=== PATIENT | male | born 1930 | race Caucasian/White ===

== ENCOUNTER → 2016-08-11 | Outpatient (CLI) | payer OTHER, MEDICARE ==
[~2016-08-11] MED LIST: ADULT LOW DOSE81 MG PO; ADVAIR 250-501 EACH INH; ADVAIR HFA 230M12 GM INH; ALBUTEROL; ALBUTEROL NEB; ALBUTEROL2.5 MG/0.1; ALBUTEROL2.5 MG/31 INH; ALLERGY RELIEF10 M3 PO; ALTACE; ALTACE 1.25 M1.25 M1 PO; ALTACE5 M1 PO; ASPIR 8181 MG PO; ASTELIN30 ML NS; AZITHROMYCIN 2250 MG PO; BALSALAZIDE DI750 M1 PO; BELLADONNA-OPI1 EACH RC; BENTYL 10 MG CA10 MG PO; BUDESONIDE EC3 MG PO; CALCIUM; CARVEDILOL3.125 MG PO; CENTRUM SILVER1 EAC2 PO; COLACE100 MG PO; COLAZAL750 M1; COLAZAL750 M1 PO; COZAAR 50 MG TA50 M2 PO; DOXYCYCLINE 10100 MG PO; DUONEB 2.5-0.5 M3 ML INH; FISH OIL + D31 EACH PO; FISH OIL 1,0001 EAC5 PO; FISH OIL 1,001000 M2 PO; FLOMAX0.4 MG PO; FLONASE 0.05%50 MCG NASAL; FOLIC ACID 40400 MC1; FOLIC ACID1 MG PO; FUROSEMIDE 40 M40 M1 PO; HYDROCODON-ACE1 EAC7 PO; HYDROCODON-ACE1 EAC8 PO; IPRATROPIUM; KEFLEX500 MG PO; KLOR-CON M2020 MEQ PO; KLOR-CON20 ME1 PO; LEVAQUIN 500 M500 M4 PO; LEVAQUIN 500 M500 MG PO; LOSARTAN POTASS25 MG PO; MEDROLDOSEPACK PO; MIRALAX17 GM PO; MUCINEX TA600 MG/TA2 PO; NITROGLYCERIN0.4 MG; NORCO 5-325 TA1 EACH; NORCO 5-325 TA1 EACH PO; OMEPRAZOLE PO; OS-CAL 500+D C1 EACH; OXYGEN MISCELL; PERCOCET; PERCOCET 5-3251 EACH PO; POTASSIUM20 PO; PREDNISONE 10 M10 M1 PO; PREDNISONE 10 M10 MG PO; PREDNISONE 20 M20 M1 PO; PREDNISONE 20 M20 MG PO; PREDNISONE 5 MG5 MG PO; PROAIR HFA8.5 GM INH; PROMETHAZINE HC25 M1 PO; PULMICORT0.5 MG/2 M IH; RESTORIL15 MG PO; SENOKOT-S1 TA1 PO; SIMBRINZA 1%-0.28 ML OPHTHALMIC; SIMVASTATIN40 MG PO; SPIRIVA INH; SPIRIVA18 MCG INH; SPIRONOLACTONE25 MG PO; TAMIFLU30 MG PO; TRAMADOL 50 MG50 MG PO; TRAVATAN Z5 ML OP; XANAX 0.5 MG0.5 M1 PO; XARELTO10 M1 PO; ZYRTEC10 M5 PO
== END ==
LOC: ULTRA 10:53
DX: R60.0 Localized edema (principal)

== ENCOUNTER → 2016-09-26 | Outpatient (CLI) | payer OTHER, MEDICARE ==
[~2016-09-26] MED LIST changes: +PREDNISONE 1 MG1 M1 PO; +PROSCAR 5MG TABL5 M1 PO; +SIMBRINZA 1%-0.28 ML; +UNKNOWN ANTIBIOTIC
== END ==
LOC: CAT 08:48
DX: R19.07 Generalized intra-abdominal and pelvic swelling, mass and lump (principal); K57.90 Diverticulosis of intestine, part unspecified, without perforation or abscess without bleeding

== ENCOUNTER 2016-09-27 06:52 | Inpatient (IN) | payer OTHER, MEDICARE ==
[~2016-09-27] VITALS: Ht 177.8 cm; Wt 73.4 kg
[2016-09-27] VITALS (26 sets, daily range): BP systolic 99–198; BP diastolic 52–143
--- NOTE | ~2016-09-27 | HC ---
[facility] [place] [address] CONSULTATION Name: ABIGAIL LOUISE Room #: 245-P ADM IN M.R.#: [id number] Admission: 09/27/16 Attend Phys: Lokesh Mcintosh DO Discharge: Date of : 32 Report #: [id number] THIS REPORT FOR: //name// CC: Snow Coronado DATE OF SERVICE: 09/28/2016 NEPHROLOGY CONSULTATION REASON FOR CONSULTATION: Decreased urine output. HISTORY OF PRESENT ILLNESS: This 85-year-old gentleman with known COPD, chronic atrial fibrillation and Crohn's disease was admitted with apparent pneumonia and shortness of breath. He does not have chronic renal disease, baseline creatinine of 1, but apparently, he has cor pulmonale with right-sided failure, chronically on Lasix and spironolactone at home. These medications were stopped. He was admitted and treated for his pneumonia and steroids were added. He was not given diuretics. His urine output has become somewhat sluggish. PAST MEDICAL HISTORY: He has the chronic atrial fibrillation and Crohn's disease. He had a bowel resection within the last year, history of hypertension and right-sided heart failure. He has got obstructive sleep apnea, but he does not use CPAP. He has had a right knee replacement and right shoulder replacement. He has previous atrial septal defect repair and has had several back surgeries. SOCIAL HISTORY: Former smoker, not much alcohol. Lives at home with his . HOME MEDICATIONS: Include furosemide 40 mg daily, Losartan 50 mg daily, balsalazide 750 mg b.i.d., finasteride 5 mg daily, fish oil, spironolactone 25 mg daily, albuterol inhaler and again currently now has the addition of the steroids. REVIEW OF SYSTEMS: GENERAL: He has gotten a bit more confused. EYES: Vision seems okay. ENT: Hearing okay. Swallowing has not been a problem. ENDOCRINE: No diabetes or thyroid disease. RESPIRATORY: Chronic shortness of breath with COPD and now acute exacerbation, not much in the way of cough or hemoptysis. CARDIAC: He has had the chronic atrial fibrillation. GASTROINTESTINAL: Denies nausea, vomiting or diarrhea. GENITOURINARY: He has got Lord catheter in, has had some degree of prostate enlargement. NEUROLOGIC: Cognitively, he seems a bit off at this time. [facility] [address] [place] [address] CONSULTATION Name: ABIGAIL LOUISE Room #: 245-P [facility] IN M.R.#: [id number] Admission: 09/27/16 Attend Phys: Lokesh Mcintosh DO Discharge: Date of : 32 Report #: [id number] PHYSICAL EXAMINATION: GENERAL: Chronically ill-appearing gentleman. SKIN: Unremarkable. SKELETAL: Nonobese, well developed and well nourished. HEENT: Extraocular movements full. Vision intact. Hearing intact. Mucous membranes on the dry side. NECK: Neck veins are somewhat distended. CHEST: Shows some rhonchi, particularly at the bases. HEART: Irregularly irregular. ABDOMEN: Soft. EXTREMITIES: Show no edema. Peripheral pulses diminished. LABORATORY DATA: Creatinine was 1; it is up to 1.4. Electrolytes are okay. Urinalysis was a bit concentrated. No proteinuria. ASSESSMENT AND PLAN: 1. Elevated creatinine with decreased urine output. He may have some volume depletion with some right-sided failure. He has got apparent acute pneumonia and exacerbation of chronic obstructive pulmonary disease. He has been diuretic dependent, so urine output is dropped off the diuretics unexpectedly. No real acute intervention is indicated, except for the treatment now of his pneumonia and we will follow him along. 2. Apparent pneumonia. 3. Chronic obstructive pulmonary disease with exacerbation. 4. History of sleep apnea. 5. History of Crohn's disease with recent resection of the bowel. 6. Chronic atrial fibrillation. 7. Repair of atrial septal defect. <ELECTRONICALLY SIGNED> By: Burton Boateng MD 09/30/16 0718 1812 0047 Paul Vasquez MD /nt
--- NOTE | ~2016-09-27 | EKG ---
[address] [address] ELECTROCARDIOGRAM REPORT Name: ABIGAIL LOUISE Room #: 245-P ADM IN M.R.#: [id number] Admission: 09/27/16 Attend Phys: [place] Coronado MD Discharge: Date of : 32 Report #: [id number] THIS REPORT FOR: //name// [facility] ED Test Date: 2016-09-27 Test Time: 06:58:34 Pat Name: ABIGAIL LOUISE Department: Room: [facility] Gender: M Extermination Supervisor: [facility] [place] 1930 Requested By: Faraz Ley Order Number: [id number] MD: Chicho Palafox Measurements Intervals [place] Rate: 129 P: 116 [place]: 110 QRS: 57 QRSD: 124 T: -24 QT: 303 QTc: 444 Interpretive Statements Sinus tachycardia IVCD, consider atypical RBBB Compared to ECG 06/02/2016 13:49:42 Atrial flutter no longer present ST (T wave) deviation no longer present Electronically Signed On 09-28-2016 22:06:01 CDT by Chicho Palafox [email or web address] <ELECTRONICALLY SIGNED> By: Chicho Palafox MD 09/28/16 2206 0658 0658 Chicho Palafox MD /EPI
--- NOTE | ~2016-09-27 | HC ---
[facility] [place] [address] CONSULTATION Name: ABIGAIL LOUISE Room #: 245-P ADM IN M.R.#: [id number] Admission: 09/27/16 Attend Phys: [place] Coronado MD Discharge: Date of : 32 Report #: [id number] THIS REPORT FOR: //name// CC: Snow Bemonse Coronado DATE OF SERVICE: 09/28/2016 ATTENDING PHYSICIAN: Bryan Coronado M.D. REASON FOR CONSULTATION: Antibiotic management. HISTORY OF PRESENT ILLNESS: The patient is an 85-year-old white man admitted with increasing difficulty in breathing and admitted to the intensive care unit. The patient is COPD and found to have right infiltrate, started on Zosyn and ID opinion is requested. At present, the patient on BiPAP and uncomfortable on account of that. PAST MEDICAL HISTORY: 1. Chronic obstructive pulmonary disease, coronary artery disease status post coronary artery bypass grafting. 2. History of coronary artery stenting. 3. Crohn's disease 4. Back surgery. 5. Previous knee surgery. DRUG ALLERGIES: MORPHINE, FACULTY ADMINISTRATOR side effects; MESALAMINE, rash; MERCAPTOPURINE, rash; CARVEDILOL, cough; LEVOFLOXACIN, itching; INFLIXIMAB (REMICADE) rash, pneumonia. MEDICATIONS: The patient is currently on treatment with melatonin p.r.n., Benadryl p.r.n., famotidine b.i.d. 10 mg, enoxaparin 30 mg at bedtime, diltiazem 30 mg p.o. q.i.d., Zosyn 3.375 grams IV every 6 hours, Atrovent, albuterol inhalation treatments every 4 hours, ondansetron 4 mg IV p.r.n. q. 4 hours, intravenous fluids. The patient has received a single dose of methylprednisolone 125 mg IV yesterday. SOCIAL HISTORY: See H and P old records. FAMILY HISTORY: See H and P old records. REVIEW OF SYSTEMS: Shortness of breath and cough. No expectoration. PHYSICAL EXAMINATION: GENERAL: Elderly man on BiPAP in the ICU, not toxic looking, uncomfortable with his BiPAP. [facility] [address] [place] [address] CONSULTATION Name: ABIGAIL LOUISE Room #: 245-P [facility] IN M.R.#: [id number] Admission: 09/27/16 Attend Phys: [place] Coronado MD Discharge: Date of : 32 Report #: [id number] VITAL SIGNS: Temperature 98.4, pulse 68, respirations 22, BP 125/84, patient on BiPAP, FiO2 of 30% and saturations at 98%. HEENMT: Pupils reactive. Mouth unable to examine because of BiPAP. NECK: Supple, no thyromegaly. LUNGS: Crackles, right base and decreased breath sounds throughout. HEART: S1, S2. No gallop or murmur. ABDOMEN: Soft, mildly tender right lower quadrant and no palpable masses or megaly. GENITALIA: Lord catheter in place. RECTAL: Deferred. EXTREMITIES: No clubbing, cyanosis. NEUROLOGIC: Grossly within normal limits. LABORATORY DATA: Sodium 132, potassium 4.5, BUN 16, creatinine 1, glucose 187, troponin 0.10, NT-proBNP 2784, protime 9.4, INR 1. WBC 13,100, hemoglobin 12.3 g/dL and platelets 257,000. White blood cell count differential revealed 84% segmented neutrophils. Urinalysis revealed trace protein, 1+ glucose, 2+ blood. Microscopic exam revealed a microscopic hematuria. ABGs reveal pH 7.34, pCO2 of 52, pO2 80, bicarbonate 28, lactate normal. These set of gases on BiPAP, FiO2 of 40%. MICROBIOLOGY DATA: Blood cultures were ordered and obtained and they are negative so far. Radiology evaluation, a chest x-ray revealed hyperinflation of the lungs As status post coronary artery bypass grafting and right basilar perihilar infiltrate, possible pneumonia. CT scan of abdomen and pelvis revealed no acute intraabdominal process, diverticulosis. ASSESSMENT: 1. Possible right lower lobe pneumonia. 2. Acute exacerbation of chronic obstructive pulmonary disease. 3. Emphysema. 4. Respiratory failure with CO2 retention. 5. Metabolic acidosis. 6. Coronary artery disease status post coronary artery bypass grafting. 7. Atrial fibrillation, rate control. 8. History of Crohn's disease. SUGGESTIONS: The patient not toxic looking, afebrile. We will continue coverage with Zosyn. I wonder if steroids may need to be continued. Dr. Coronado, thank you for requesting my suggestions in the care of your patient. <ELECTRONICALLY SIGNED> By: Benjamin Palafox MD 09/29/16 1303 0658 30 Benjamin Palafox MD /nt
--- NOTE | ~2016-09-27 | HC ---
[facility] [place] [address] CONSULTATION Name: ABIGAIL LOUISE Room #: 245-P ADM IN M.R.#: [id number] Admission: 09/27/16 Attend Phys: Lokesh Mcintosh DO Discharge: Date of : 32 Report #: [id number] THIS REPORT FOR: //name// CC: Snow Corondao DATE OF SERVICE: 09/27/2016 HISTORY OF PRESENT ILLNESS: The patient is an 85-year-old white male who I was asked to see in the hospital today because of atrial fibrillation. The patient apparently had open heart surgery in 1974 in [place], [place], when they apparently repaired a hole in his heart. He then presented in 2009 here to [facility] with shortness of breath. Cardiac catheterization showed an 80% stenosis of circumflex artery. Ejection fraction of 40%. He has a single bare-metal stent placed with Dr. Flores. He has a history of atrial fibrillation, apparently is never cardioverted. He is not felt to be a candidate for anticoagulation because of his inflammatory bowel disease. He has been followed by my partner, Dr. Benitez. Last nuclear stress test was in 2015 that showed no ischemia, ejection fraction 52%. His last echocardiogram in April of this year showed ejection fraction 55%, right atrial enlargement, aortic sclerosis, mild mitral and moderate tricuspid insufficiency with moderate pulmonary hypertension. He apparently did not have a bubble study. The patient was actually just admitted here to [facility] last month. The patient has a history of COPD. He was discharged in May. However, recently had increasing shortness of breath and he was admitted. He is found to be in atrial fibrillation and I was asked to see him for further evaluation and treatment. He has had a cough, but no fever or increasing edema. Denies any chest pain, palpitations or syncope. PAST MEDICAL HISTORY: Significant for hernia repair, back surgery, rotator cuff surgery, knee surgery. He has had previous bowel resection for Crohn's disease. MEDICATIONS: Consist of Spiriva, albuterol, ProAir, spironolactone, losartan, Lasix. ALLERGIES: He has intolerance to LEVAQUIN. FAMILY HISTORY: His brother had hypertension. SOCIAL HISTORY: He is . He and his live in [place], [place]. He is retired from [employer]. He does not smoke for 40 years. Rarely drinks alcohol. REVIEW OF SYSTEMS: He was told in the past by an eye doctor, he has had a previous stroke. He has no history of liver disease, peptic ulcer disease. He has had a skin cancer removed in the past. No psychiatric illness. No kidney [facility] [address] [place] [address] CONSULTATION Name: ABIGAIL LOUISE Room #: 245-P ADM IN M.R.#: [id number] Admission: 09/27/16 Attend Phys: Lokesh Mcintosh DO Discharge: Date of : 32 Report #: [id number] disease. PHYSICAL EXAMINATION: GENERAL: Revealed an elderly male, lying in bed, appeared in mild respiratory distress. VITAL SIGNS: He had a blood pressure of 180/80, pulse of 100 . He is afebrile. HEENT: He is anicteric. Mucous membranes moist. NECK: Veins appear mildly distended. CHEST: Revealed distant breath sounds. CARDIAC: Irregular rhythm. No significant murmur. ABDOMEN: Soft. EXTREMITIES: There is 1+ edema in the left lower extremity. Dorsalis pedis pulse 2+ in the right, cannot be palpated in the left. SKIN: Warm and dry. His ECG showed atrial fibrillation with an increased ventricular response rate, septal Q-waves. His x-rays, he had a chest x-ray done this morning that showed hyperinflated lung watts and right perihilar infiltrate. Carotid Doppler study in May this year showed right ECA stenosis, plaque in the other carotids. His lab work included sodium 132, potassium 4.5, BUN 16, creatinine 1.0. His troponin 0.10. BNP 2784. White blood cell count 13.1, hemoglobin 12.3. IMPRESSION AND RECOMMENDATIONS: 1. Shortness of breath, suspect secondary to chronic obstructive pulmonary disease. 2. Coronary artery disease. Previous stent. I would recommend an aspirin a day. 3. Atrial fibrillation. Rate controlled. The patient not felt to be a candidate for anticoagulation because of his history of inflammatory bowel disease. 4. Crohn's disease. Previous resection. 5. History of hypertension. 6. Previous open repair of an atrial septal defect. <ELECTRONICALLY SIGNED> By: Jose G Ferreira MD, [facility] 09/30/16 0755 1418 03 Jose G Ferreira MD, FAC /nt
--- NOTE | ~2016-09-27 | HC ---
[facility] [place] [address] CONSULTATION Name: ABIGAIL LOUISE Room #: 245-P ADM IN M.R.#: [id number] Admission: 09/27/16 Attend Phys: Bryan Coronado MD Discharge: Date of : 32 Report #: [id number] THIS REPORT FOR: //name// CC: Snow Coronado DATE OF SERVICE: 09/27/2016 REASON FOR CONSULTATION: Exacerbation of COPD. IMPRESSION: 1. Hypercapnic hypoxic respiratory failure. 2. Leukocytosis. 3. Pneumonia, question aspiration. 4. Elevated BNP. 5. Hyponatremia. 6. Hypothyroidism. PLAN: Treat his pneumonia and exacerbation of COPD. Continue BiPAP, Cardiology and ID to see also, DVT and ulcer prophylaxis. ICU protocol HISTORY OF PRESENT ILLNESS: Very pleasant 85-year-old male comes in through emergency room, complained of shortness breath. No definite chest pain or palpitations. Positive cough, low-grade fever, now on BiPAP in the emergency room. HOME MEDICATIONS: Included Advair, ProAir, multivitamin, Travatan, Simbrinza, fish oil, Flonase, losartan, spironolactone, Aldactone, Spiriva, finasteride, Lasix, levothyroxine, Sulfazine. PAST MEDICAL HISTORY: Coronary artery disease 2009, had a post bare-metal stent left circumflex, history of cardiomyopathy and pulmonary hypertension, atrial fibrillation, Crohn's disease, mild CHF, hypertension, arthritis. Recently, he had a CT abdomen, I noticed for back pain. PAST SURGICAL HISTORY: Surgeries in the past include hernia repair in 3, heart surgery in 1974, back surgery in 1980 and 1987, left rotator cuff repair, appendectomy, vasectomy, bilateral cataract surgery, right reversal total shoulder arthroplasty, open biceps tendon, right knee surgery. FAMILY HISTORY: Positive for hypertension. SOCIAL HISTORY: Quit smoking in 1984. Social ETOH per chart. ALLERGIES: ASACOL, REMICADE, MERCAPTOPURINE, PERFOROMIST, and LEVAQUIN. [facility] [address] [place] [address] CONSULTATION Name: ABIGAIL LOUISE Room #: 245-P ADM IN M.R.#: [id number] Admission: 09/27/16 Attend Phys: Bryan Coronado MD Discharge: Date of : 32 Report #: [id number] REVIEW OF SYSTEMS: Difficulty hearing, cough, shortness of breath, phlegm. No definite chest pain. Positive back pain, headaches, arthritis. Spirometry in office was FVC was 2.79, 79% predicted, FEV1 of 0.98. PHYSICAL EXAMINATION: VITAL SIGNS: Temperature 98.1, pulse 113, respirations 26, BP 127/69. EYES: Negative icterus. NECK: Trachea midline. BiPAP on. LUNGS: Coarse, right greater than left, crackles. HEART: Tachycardic. ABDOMEN: Bowel sounds present. EXTREMITIES: Showed positive edema, left greater than right; moves all extremities. LABORATORY DATA: White count 13.1, hemoglobin 12.3, platelets 257. Troponin less than 0.04. BNP 2784. INR 1. Chest x-ray showed right infiltrate. CT abdomen yesterday showed no acute, tiny 1-2 mm calcification in central portion of left kidney, mild diverticulosis, stable scarring in lungs. Forty-five minutes critical care time up to this point. <ELECTRONICALLY SIGNED> By: Rocío Sosa MD 09/28/16 0931 1312 1916 Rocío Sosa MD /nt
[~2016-09-27 06:52] MED LIST changes: -PREDNISONE 1 MG1 M1 PO; -PROSCAR 5MG TABL5 M1 PO; -SIMBRINZA 1%-0.28 ML; -UNKNOWN ANTIBIOTIC
[2016-09-27 07:40] LABS: HEMATOCRIT 37.3 % (42.0-52.0); HEMOGLOBIN 12.3 gm/dL (14.0-18.0); MCH 33.2 pg (26.0-34.0); MCV 100.8 fL (80.0-100.0); PLATELET COUNT 257 thou/uL (150-400); WBC 13.1 thou/uL (4.0-11.0)
[2016-09-27 07:48] LABS: PROTIME 9.4 Seconds (9.3-11.4)
[2016-09-27 07:51] LABS: MANUAL DIFF YES
[2016-09-27 07:52] LABS: ABG SAMPLE TYPE ARTERIAL; BE(vivo) 1.4 mmol/L (-2 to +3); LACTATE 1.24 mmol/L (0.5-2.0); O2(CT) 16.6 mL/dL (15.0-23.0); O2Hb 94.1 % (92.0-98.0); PCO2 52.4 mmHg (35.0-45.0); PO2 80.3 mmHg (80.0-100.0); STICK SITE R.BRACHIAL; pH 7.345 (7.360-7.450); sO2 95.1 % (92.0-98.0); tCO2 29.6 mmol/L (24.0-30.0)
[2016-09-27 07:53] LABS: ABG COMMENT PT ON BIPAP; TIDAL VOLUME 880 ml
[2016-09-27 07:56] LABS: ANION GAP 7 mmol/L (7-16); BUN 16 mg/dL (7-18); CHLORIDE 95 mmol/L (98-107); CO2 30 mmol/L (21-32); GLUCOSE 187 mg/dL (74-106); POTASSIUM 4.5 mmol/L (3.5-5.1); SODIUM 132 mmol/L (136-145)
[2016-09-27 08:08] LABS: NT-PRO BRAIN NAT PEPTIDE 2784 pg/mL (<300); TROPONIN-I < 0.04 ng/mL (<0.04-0.07)
[2016-09-27 08:52] LABS: ABSOLUTE NEUTROPHILS 11.8 thou/uL (1.4-8.2); TOTAL CELL COUNT 100
[2016-09-27] MEDS ORDERED: PREDNISONE 1 MG1 M1 PO (08:53)
[2016-09-27] MEDS ORDERED: ADVAIR HFA 230M12 GM INH (08:54)
[2016-09-27] MEDS ORDERED: SIMBRINZA 1%-0.28 ML (08:57)
[2016-09-27] MEDS ORDERED: FISH OIL 1,001000 M2 PO (08:58)
[2016-09-27] MEDS ORDERED: PROSCAR 5MG TABL5 M1 PO (08:58)
[2016-09-27] MEDS ORDERED: UNKNOWN ANTIBIOTIC (08:59)
[2016-09-27 10:56] LABS: URINE BILIRUBIN NEGATIVE (Negative); URINE BLOOD 2+ (Negative); URINE COLOR YELLOW; URINE GLUCOSE-RANDOM* 1+ (Negative); URINE KETONES NEGATIVE (Negative); URINE NITRITE NEGATIVE (Negative); URINE PROTEIN (DIPSTICK) TRACE (Negative); URINE SPECIFIC GRAVITY 1.025 (1.003-1.035); URINE UROBILINOGEN 0.2 E.U./dl (0.2-1.0)
[2016-09-27 11:43] LABS: BACTERIA None Seen /HPF (None Seen); CASTS None Seen /LPF (None Seen); CRYSTALS None Seen /LPF (None Seen); SQUAMOUS 0-3 Few /LPF (0-3); URINE RBC 3-10 Few /HPF (0-2); URINE WBC 0-5 Rare /HPF (0-5)
[2016-09-28] VITALS (31 sets, daily range): BP systolic 38–160; BP diastolic 27–94
[2016-09-28 07:55] LABS: HEMATOCRIT 34.7 % (42.0-52.0); HEMOGLOBIN 11.5 gm/dL (14.0-18.0); MCHC 33.1 g/dL (28.0-37.0); MCV 99.8 fL (80.0-100.0); RBC 3.47 mil/uL (4.50-6.00); RDW 13.2 % (10.5-14.5); WBC 14.6 thou/uL (4.0-11.0)
[2016-09-28 07:58] LABS: MANUAL DIFF YES; PLATELET COUNT 178 thou/uL (150-400)
[2016-09-28 08:12] LABS: CALCIUM 9.2 mg/dL (8.5-10.1); CREATININE 1.4 mg/dL (0.7-1.3); POTASSIUM 4.8 mmol/L (3.5-5.1); TOTAL BILIRUBIN 0.7 mg/dL (<0.1-1.0); TOTAL PROTEIN 6.9 g/dL (6.4-8.2)
[2016-09-28 08:18] LABS: ABG SAMPLE TYPE ARTERIAL; HCO3 24.6 mmol/L (22.0-26.0); LACTATE 1.27 mmol/L (0.5-2.0); O2(CT) 16.2 mL/dL (15.0-23.0); O2Hb 95.5 % (92.0-98.0); PCO2 44.9 mmHg (35.0-45.0); PO2 92.3 mmHg (80.0-100.0); pH 7.357 (7.360-7.450); sO2 96.7 % (92.0-98.0)
[2016-09-28 08:22] LABS: ABSOLUTE NEUTROPHILS 13.4 thou/uL (1.4-8.2); TOTAL CELL COUNT 100
[2016-09-28 08:23] LABS: ANISOCYTOSIS 2+
[2016-09-28 08:24] LABS: POLYCHROMASIA OCCASIONAL
[2016-09-28 08:40] LABS: Pressure Support 10 cm H20; STICK SITE L.RADIAL
[2016-09-29] VITALS (25 sets, daily range): BP systolic 103–168; BP diastolic 44–105
[2016-09-29 18:06] LABS: URINE CREATININE-RANDOM* 97.6 mg/dL (Not Estab.)
[2016-09-30] VITALS (19 sets, daily range): BP systolic 120–205; BP diastolic 52–120
[2016-09-30 04:24] LABS: HEMATOCRIT 35.4 % (42.0-52.0); HEMOGLOBIN 11.6 gm/dL (14.0-18.0); MCH 32.8 pg (26.0-34.0); MCHC 32.7 g/dL (28.0-37.0); MCV 100.3 fL (80.0-100.0); PLATELET COUNT 205 thou/uL (150-400); RBC 3.53 mil/uL (4.50-6.00); RDW 13.4 % (10.5-14.5); WBC 10.7 thou/uL (4.0-11.0)
[2016-09-30 04:31] LABS: MANUAL DIFF YES
[2016-09-30 04:34] LABS: ALBUMIN 2.9 g/dL (3.4-5.0); CALCIUM 9.4 mg/dL (8.5-10.1); CREATININE 1.1 mg/dL (0.7-1.3); PHOSPHORUS 3.1 mg/dL (2.5-4.9); POTASSIUM 4.9 mmol/L (3.5-5.1)
[2016-09-30 08:13] LABS: ABSOLUTE NEUTROPHILS 10.5 thou/uL (1.4-8.2); ANISOCYTOSIS SLIGHT; POLYCHROMASIA SLIGHT; TOTAL CELL COUNT 100
[2016-10-01] VITALS (17 sets, daily range): BP systolic 137–192; BP diastolic 43–135
[2016-10-01 06:18] LABS: HEMATOCRIT 38.1 % (42.0-52.0); HEMOGLOBIN 12.3 gm/dL (14.0-18.0); MCH 32.4 pg (26.0-34.0); MCHC 32.3 g/dL (28.0-37.0); MCV 100.3 fL (80.0-100.0); RBC 3.8 mil/uL (4.50-6.00); RDW 13.5 % (10.5-14.5); WBC 14.3 thou/uL (4.0-11.0)
[2016-10-01 06:28] LABS: CALCIUM 9.6 mg/dL (8.5-10.1); POTASSIUM 4.7 mmol/L (3.5-5.1)
[2016-10-02] VITALS (18 sets, daily range): BP systolic 101–179; BP diastolic 37–91
[2016-10-02 04:24] LABS: HEMATOCRIT 38.8 % (42.0-52.0); HEMOGLOBIN 12.7 gm/dL (14.0-18.0); MCH 32.4 pg (26.0-34.0); MCHC 32.6 g/dL (28.0-37.0); MCV 99.2 fL (80.0-100.0); PLATELET COUNT 237 thou/uL (150-400); RBC 3.91 mil/uL (4.50-6.00); RDW 13.6 % (10.5-14.5); WBC 13.5 thou/uL (4.0-11.0)
[2016-10-02 04:25] LABS: MANUAL DIFF YES
[2016-10-02 04:38] LABS: ALBUMIN 2.9 g/dL (3.4-5.0); CALCIUM 9.2 mg/dL (8.5-10.1); CREATININE 1.1 mg/dL (0.7-1.3); PHOSPHORUS 3.3 mg/dL (2.5-4.9); POTASSIUM 4.5 mmol/L (3.5-5.1)
[2016-10-02 04:50] LABS: METAMYELOCYTES 1 %; MYELOCYTES 1 %; TOTAL CELL COUNT 100
[2016-10-03 04:20] VITALS: BP 172/71
[2016-10-03 05:38] LABS: HEMATOCRIT 38.7 % (42.0-52.0); HEMOGLOBIN 12.7 gm/dL (14.0-18.0); MCH 32.7 pg (26.0-34.0); MCHC 32.8 g/dL (28.0-37.0); MCV 99.5 fL (80.0-100.0); PLATELET COUNT 206 thou/uL (150-400); RBC 3.89 mil/uL (4.50-6.00); RDW 13.4 % (10.5-14.5); WBC 10.7 thou/uL (4.0-11.0)
[2016-10-03 05:49] LABS: CALCIUM 9.3 mg/dL (8.5-10.1); POTASSIUM 4.4 mmol/L (3.5-5.1)
[2016-10-03 05:57] LABS: MANUAL DIFF YES
[2016-10-03 07:26] LABS: ABSOLUTE NEUTROPHILS 9.8 thou/uL (1.4-8.2); METAMYELOCYTES 1 %; TOTAL CELL COUNT 100
[2016-10-03 07:27] LABS: ANISOCYTOSIS SLIGHT
[2016-10-03 08:21] VITALS: BP 166/71
[2016-10-03 14:44] VITALS: BP 137/50
== END 2016-10-03 17:07 | DRG 871 ==
LOC: ER 06:52 → EROBS 08:25 → ICU 08:25 → 4W 10-02 16:35
PROVIDERS: Emergency Medicine; Family Medicine; Internal Medicine Cardiovascular Disease; Internal Medicine Nephrology; Internal Medicine Pulmonary Disease
PROC: 5A09357 Assistance with Respiratory Ventilation, Less than 24 Consecutive Hours, Continuous Positive Airway Pressure (ICD-10-PCS; principal; 2016-09-28)
DX: A41.9 Sepsis, unspecified organism (principal); J18.9 Pneumonia, unspecified organism; J96.22 Acute and chronic respiratory failure with hypercapnia; J96.21 Acute and chronic respiratory failure with hypoxia; G93.40 Encephalopathy, unspecified; K50.90 Crohn's disease, unspecified, without complications; E87.1 Hypo-osmolality and hyponatremia; N17.9 Acute kidney failure, unspecified; J44.1 Chronic obstructive pulmonary disease with (acute) exacerbation; J44.0 Chronic obstructive pulmonary disease with (acute) lower respiratory infection; N39.0 Urinary tract infection, site not specified; F41.9 Anxiety disorder, unspecified; H40.9 Unspecified glaucoma; Z96.651 Presence of right artificial knee joint; M19.90 Unspecified osteoarthritis, unspecified site; E03.9 Hypothyroidism, unspecified; G47.33 Obstructive sleep apnea (adult) (pediatric); I27.81 Cor pulmonale (chronic); E74.39 Other disorders of intestinal carbohydrate absorption; I25.10 Atherosclerotic heart disease of native coronary artery without angina pectoris; I27.2 Other secondary pulmonary hypertension; Z96.611 Presence of right artificial shoulder joint; R41.0 Disorientation, unspecified; I11.0 Hypertensive heart disease with heart failure; I50.9 Heart failure, unspecified; I48.2 Chronic atrial fibrillation; Z86.73 Personal history of transient ischemic attack (TIA), and cerebral infarction without residual deficits; Z95.5 Presence of coronary angioplasty implant and graft; Z98.818 Other dental procedure status; Z98.42 Cataract extraction status, left eye; Z98.41 Cataract extraction status, right eye; Z88.6 Allergy status to analgesic agent; Z88.1 Allergy status to other antibiotic agents; Z88.8 Allergy status to other drugs, medicaments and biological substances; Z87.891 Personal history of nicotine dependence; Z90.49 Acquired absence of other specified parts of digestive tract; Z98.52 Vasectomy status; Z82.49 Family history of ischemic heart disease and other diseases of the circulatory system; Z79.899 Other long term (current) drug therapy
CPT/HCPCS: 10047; 10078

== ENCOUNTER 2016-10-03 13:18 | Inpatient (IN) | payer OTHER, MEDICARE ==
[~2016-10-03] VITALS: Ht 182.9 cm; Wt 69.3 kg
--- NOTE | ~2016-10-03 | PLAN ---
[facility] [place] [address] REHAB UNIT PLAN OF CARE Name: ABIGAIL LOUISE Room #: 510-P DIS IN M.R.#: [id number] Admission: 10/03/16 Attend Phys: Jose G Kwok MD Discharge: 10/09/16 Date of : 32 Report #: [id number] THIS REPORT FOR: //name// CC: Jose G Schroeder HISTORY OF PRESENT ILLNESS: The patient is seen back today in followup. He is pleasant and alert. He appears to be doing better. Temperature 36.6, pulse 72, respirations 16 and blood pressure 159/65. He has nasal prong O2 in place, currently 2 liters. Appears more interactive with me. Functionally, he has been working in therapies with transfers, contact guard, gait 100 feet front-wheeled walker, contact guard and lower extremity dressing is supervision. Nursing has been monitoring him regarding voiding. He is not needed to be catheterized per my discussion with nursing. He is still on a pureed diet with honey-thickened liquids and speech therapy will be assessing that. ASSESSMENT: An 85-year-old white male with the following problem list: 1. Multifactorial encephalopathy. 2. Dysphagia. He is currently on pureed, honey-thickened liquids and we will have a video swallow study to reassess. 3. Pneumonia. 4. Chronic obstructive pulmonary disease. 5. Atrial fibrillation. 6. Status post atrial septal defect, repaired. 7. History of Crohn's. 8. Renal insufficiency that is improving. 9. Cor pulmonale. PLAN: The overall plan of care is based on the preadmission screen, post-admission physician evaluation and information garnered from therapy assessments. 1. Estimated length of stay is probably a fairly short, 7-10 days likely pending progress. 2. Medical prognosis is reasonably good. 3. Anticipated interventions includes the interdisciplinary acute inpatient rehabilitation program with PT and OT and speech, rehabilitation nursing assisting regarding medication management, skin care prophylaxis, bowel and bladder issues and nursing education. The client care consultant physicians are continuing to follow. 4. Anticipated functional outcomes would be for the patient to become modified independent with transfers, mobility, ADLs as well improvement in swallowing so that he can return back to the home setting. 5. Discharge destination will be back to the home setting with his . 6. Expected therapy by discipline includes PT, OT and speech 1 hour per day each 5 days a week throughout the duration [place] [address] REHAB UNIT PLAN OF CARE Name: ABIGAIL LOUISE Room #: 510-P DIS IN M.R.#: [id number] Admission: 10/03/16 Attend Phys: Jose G Kwok MD Discharge: 10/09/16 Date of : 32 Report #: [id number] stay. Hopefully, he will improve further as far as his overall cognition is well. <ELECTRONICALLY SIGNED> By: Jose G Kwok MD 10/14/16 1821 1023 1529 Jose G Kwok MD /nt
--- NOTE | ~2016-10-03 | HC ---
[facility] [place] [address] CONSULTATION Name: ABIGAIL LOUISE Room #: 510-P [facility] IN M.R.#: [id number] Admission: 10/03/16 Attend Phys: Jose G Kwok MD Discharge: 10/09/16 Date of : 32 Report #: [id number] THIS REPORT FOR: //name// CC: Jose G Kwok Snow Florenecmarci DATE OF SERVICE: 10/04/2016 AGE: 85. ATTENDING PHYSICIAN: Jose G Kwok M.D. MOBILE DESIGNER: Paul Bridges, PhD CLINICAL PRESENTATION: The patient is an 85-year-old male admitted to the [facility] rehabilitation unit for a comprehensive inpatient rehabilitation program to improve functional mobility, activities of daily living and self-care and mental status secondary to deficits from encephalopathy as a result of COPD and pneumonia. Diagnoses include atrial fibrillation, status post atrial septal defect repair, history of Crohn's, renal insufficiency and cor pulmonale. A complete description of his medical condition and history along with medications can be found in his medical record. Neuropsychological consultation was requested to provide assistance in the assessment of cognitive and emotional status and to provide recommendations and services. Prior to this most recent admission, he was living independently in his own home with his . His indicates that he was independent with basic and instrumental activities of daily living. He was driving short distances. She reports a visual defect that was affecting his ability to drive safely. He completed a GED. The patient had a son who was killed in a car accident in the mid-90s. He does not have a history of alcohol use in the last 15 years. 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 TECHNIQUES UTILIZED: Clinical interview, review of medical records, staff consultation and behavioral observation, mini mental status exam 2 standard version and category fluency assessment and interview with spouse and clock drawing. EXAMINATION FINDINGS: The patient required encouragement to maintain an alert and responsive response. He does not report auditory or visual hallucinations. There is no evidence of aphasia. His thoughts are logical and goal oriented. His energy level was reduced and the patient was drowsy during the assessment. His indicates he has had intermittent periods of agitation and aggressive behavior. He has been combative and combative behavior has been associated with [facility] [address] [place] [address] CONSULTATION Name: ABIGAIL LOUISE Room #: 510-P [facility] IN M.R.#: [id number] Admission: 10/03/16 Attend Phys: Jose G Kwok MD Discharge: 10/09/16 Date of : 32 Report #: [id number] use of medication; example steroids. Narcotics are also reported to have contributed to agitation. His performance on the MMSE 2 brief version was extremely low with a raw score of 10 of 16. He was 3/3 for initial registration, 3/5 for orientation to time and 4/[address]. He was 0/3 for immediate recall of 3 items after a brief time delay and distraction. Performance was extremely low on the MMSE 2 standard version with a raw score of 17 of 30. He was 0/5 for serial 7's. He was 2/2 for naming, 1/1 for repetition, 3/3 for auditory comprehension. He could read and follow a single command. As indicated, he required constant encouragement to maintain alertness during the assessment. He was unable to write a sentence or copy a simple geometric design. The patient was unable to draw a clock, place the numbers and set the hands at a designated time. Category fluency was extremely low with a raw score of 7. DIAGNOSTIC IMPRESSION: Delirium, hypoactive, acute Neurocognitive disorder, unspecified with intermittent agitation and irritability, extent to be determined RECOMMENDATIONS: A followup neuropsych assessment upon resolution of delirium will be necessary. At this time, he is presenting with intermittent confusion and disorientation secondary to fatigue and general medical condition. He will require assistance with medical, financial and nutritional management. A structured and supportive environment along with a consistent schedule will be helpful. Frequent orientation and review of recent events will assist general recovery. Thank you for allowing me to provide the consultation on this patient. <ELECTRONICALLY SIGNED> By: Paul Bridges, PhD 10/11/16 1411 1438 31 Paul Bridges, PhD /nt
--- NOTE | ~2016-10-03 | HC ---
[facility] [place] [address] CONSULTATION Name: ABIGAIL LOUISE Room #: 510-P [facility] IN M.R.#: [id number] Admission: 10/03/16 Attend Phys: Jose G Kwok MD Discharge: 10/09/16 Date of : 32 Report #: [id number] THIS REPORT FOR: //name// CC: Jose G Schroeder HISTORY OF PRESENT ILLNESS: The patient is an 85-year-old white male admitted with increased shortness of breath, chronic respiratory failure, was noted to have a right lung pneumonia. He has been followed closely by pulmonary medicine, infectious disease, cardiology and has been seen by nephrology as well. He is thought to have possible aspiration and speech therapy has him on a pureed with honey thickened liquid diet. He is noted to have considerable confusion, disorientation, has been diagnosed with an encephalopathy. He has been placed near the F2G station. His has been staying with him essentially 24 hours, although she notes she is going to be relieved by a family friend that will stay with him tonight. He has been less agitated. He has permanent atrial fibrillation along with COPD. We are seeing him in rehabilitation medicine consultation. PAST MEDICAL HISTORY: Includes COPD, glaucoma, right eye; stroke affecting the right eye, cardiac stent times 1, CHF, repair of a hole in the heart in 1974 with a patch, Crohn's disease, right total knee replacement, atrial fibrillation, cardiomyopathy, bilateral cataract surgeries. MEDICATIONS: Please see the full medication listing. SOCIAL HISTORY: Lives with his , independent living apartment in one of the friendship at [facility]. He was premorbidly independent with ADLs. He has home O2 available. He used a front-wheeled walker if needed. HABITS: Cigarettes greater than one year that he quit. He is a former smoker. There is a history of some alcohol usage. ALLERGIES: INFLIXIMAB, MERCAPTOPURINE, MESALAMINE, CARVEDILOL, MORPHINE, and LEVOFLOXACIN. REVIEW OF SYSTEMS: Did not offer any current complaints of chest pain, shortness of breath, abdominal discomfort. No complaints of extremity pain, although he does have some bruising apparently from multiple IV sticks. PHYSICAL EXAMINATION: GENERAL: An 85-year-old white male, in no obvious distress. Tends to defer some answers to his . There is a definite latency to his responses. VITAL SIGNS: Temperature 98, pulse 70, respirations 18, and blood pressure 166/71. HEENT: Facies appeared to be symmetric. He has some visual issues that are [address] [address] CONSULTATION Name: ABIGAIL LOUISE Room #: 510-P [facility] IN M.R.#: [id number] Admission: 10/03/16 Attend Phys: Jose G Kwok MD Discharge: 10/09/16 Date of : 32 Report #: [id number] noted above. EXTREMITIES: Functional range of motion of both upper extremities, strength is grade 3+ to 4-/5. DTRs are trace to 1. Lower extremities, no focal calf swelling, functional range of motion with strength a grade 3+ to 4-/5. He was min assist with sit to stand. He took 3 steps. He could tell me the place. Otherwise, he has some decreased attention and definite decreased safety. ASSESSMENT: An 85-year-old white male with the following problem list: 1. Multifactorial encephalopathy. 2. Dysphagia, currently on pureed with honey thickened liquid diet. 3. Pneumonia. 4. Chronic obstructive pulmonary disease. 5. Atrial fibrillation. 6. Status post atrial septal defect repair. 7. History of Crohn's. 8. Renal insufficiency that is improving. 9. Cor pulmonale. PLAN: We are assessing the patient regarding an acute in-hospital inpatient rehabilitation stay. The has been currently staying with him and he has been nurses station with his cognitive deficits with his encephalopathy. We will be glad to follow along with you regarding his rehab therapy needs. We will be assessing to see if he is a candidate for an acute rehab stay. Thank you for asking us to assist in this patient's care. <ELECTRONICALLY SIGNED> By: Jose G Kwok MD 10/14/16 1821 [id number] [id number] Jose G Kwok MD /nt
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
[~2016-10-03 13:18] MED LIST changes: +PREDNISONE 1 MG1 M1 PO; +PROSCAR 5MG TABL5 M1 PO; +SIMBRINZA 1%-0.28 ML; +UNKNOWN ANTIBIOTIC
[2016-10-03 17:30] VITALS: BP 169/68
[2016-10-04 03:22] VITALS: BP 170/62
[2016-10-04 05:20] LABS: HEMATOCRIT 37.2 % (42.0-52.0); HEMOGLOBIN 12.4 gm/dL (14.0-18.0); MCH 32.8 pg (26.0-34.0); MCHC 33.3 g/dL (28.0-37.0); MCV 98.5 fL (80.0-100.0); RBC 3.78 mil/uL (4.50-6.00); RDW 13.4 % (10.5-14.5); WBC 8.6 thou/uL (4.0-11.0)
[2016-10-04 05:31] LABS: CALCIUM 9.4 mg/dL (8.5-10.1); POTASSIUM 3.9 mmol/L (3.5-5.1)
[2016-10-04 06:30] VITALS: BP 169/80
[2016-10-04 08:00] VITALS: BP 154/73
[2016-10-04 15:45] VITALS: BP 149/61
[2016-10-05 04:48] LABS: HEMATOCRIT 36.4 % (42.0-52.0); HEMOGLOBIN 12.1 gm/dL (14.0-18.0); MCH 32.9 pg (26.0-34.0); MCHC 33.2 g/dL (28.0-37.0); MCV 99.1 fL (80.0-100.0); PLATELET COUNT 181 thou/uL (150-400); RBC 3.68 mil/uL (4.50-6.00); RDW 13.5 % (10.5-14.5); WBC 8.7 thou/uL (4.0-11.0)
[2016-10-05 04:53] LABS: MANUAL DIFF YES
[2016-10-05 04:57] VITALS: BP 155/60
[2016-10-05 05:01] LABS: CALCIUM 9.1 mg/dL (8.5-10.1); POTASSIUM 3.7 mmol/L (3.5-5.1)
[2016-10-05 06:05] LABS: ABSOLUTE NEUTROPHILS 7.6 thou/uL (1.4-8.2); PLATELET ESTIMATE NORMAL; TOTAL CELL COUNT 100
[2016-10-05 08:25] VITALS: BP 148/55
[2016-10-05 16:00] VITALS: BP 147/57
[2016-10-05 17:32] LABS: URINE BILIRUBIN NEGATIVE (Negative); URINE BLOOD NEGATIVE (Negative); URINE COLOR YELLOW; URINE GLUCOSE-RANDOM* NEGATIVE (Negative); URINE KETONES NEGATIVE (Negative); URINE LEUKOCYTES-REFLEX NEGATIVE (Negative); URINE PROTEIN (DIPSTICK) NEGATIVE (Negative); URINE UROBILINOGEN 0.2 E.U./dl (0.2-1.0)
[2016-10-06 04:24] VITALS: BP 159/65
[2016-10-06 16:00] VITALS: BP 144/51
[2016-10-07 04:48] VITALS: BP 153/62
[2016-10-08 06:24] VITALS: BP 158/77
[2016-10-08 08:32] VITALS: BP 175/85
[2016-10-08] MEDS ORDERED: AUGMENTIN 875875 MG PO (11:33)
[2016-10-08] MEDS ORDERED: MELATONIN5 M1 PO (11:33)
[2016-10-08 15:47] VITALS: BP 120/52
[2016-10-09 05:54] VITALS: BP 168/74
[2016-10-09 08:28] VITALS: BP 168/74
[2016-10-09] MEDS ORDERED: PREDNISONE 5 MG5 M1 PO (08:57)
[2016-10-09 09:27] VITALS: BP 152/45
[2016-10-09 09:45] VITALS: BP 168/74
[2016-10-09 12:18] VITALS: BP 168/74
== END 2016-10-09 14:02 | disposition home or self-care (01) | DRG 70 ==
PROVIDERS: Family Medicine; Physical Medicine & Rehabilitation
DX: G93.40 Encephalopathy, unspecified (principal); J18.9 Pneumonia, unspecified organism; K50.90 Crohn's disease, unspecified, without complications; I42.9 Cardiomyopathy, unspecified; J96.11 Chronic respiratory failure with hypoxia; J96.12 Chronic respiratory failure with hypercapnia; J44.9 Chronic obstructive pulmonary disease, unspecified; H40.9 Unspecified glaucoma; Z96.651 Presence of right artificial knee joint; R53.81 Other malaise; I48.91 Unspecified atrial fibrillation; I27.81 Cor pulmonale (chronic); G31.84 Mild cognitive impairment of uncertain or unknown etiology; E03.9 Hypothyroidism, unspecified; Z79.899 Other long term (current) drug therapy; Z82.3 Family history of stroke; Z98.42 Cataract extraction status, left eye; Z98.41 Cataract extraction status, right eye; Z88.6 Allergy status to analgesic agent; Z88.8 Allergy status to other drugs, medicaments and biological substances; Z88.1 Allergy status to other antibiotic agents
CPT/HCPCS: 10112

== ENCOUNTER → 2016-11-27 | Outpatient (CLI) | payer OTHER, MEDICARE ==
[~2016-11-27] MED LIST changes: +AUGMENTIN 875875 MG PO; +MELATONIN5 M1 PO; +PREDNISONE 5 MG5 M1 PO
== END ==
LOC: CAT 08:42
DX: J32.0 Chronic maxillary sinusitis (principal); M41.84 Other forms of scoliosis, thoracic region; M47.894 Other spondylosis, thoracic region; R91.8 Other nonspecific abnormal finding of lung field

== ENCOUNTER → 2017-03-23 | Outpatient (CLI) | payer OTHER, MEDICARE | LOC: NUC 10:36 | DX: M81.0 Age-related osteoporosis without current pathological fracture (principal); Z79.52 Long term (current) use of systemic steroids ==

== ENCOUNTER → 2017-06-11 | Outpatient (CLI) | payer OTHER, MEDICARE ==
[~2017-06-11] MED LIST changes: +DEMADEX20 MG PO; +SYNTHROID50 MCG PO
== END ==
LOC: CAT 07:54
DX: J32.9 Chronic sinusitis, unspecified (principal); I67.82 Cerebral ischemia

== ENCOUNTER 2017-10-04 08:10 | Inpatient (IN) | payer OTHER, MEDICARE ==
[~2017-10-04] VITALS: Ht 180.3 cm; Wt 76.3 kg
--- NOTE | ~2017-10-04 | 2DMMODE ---
[facility] [address] [place] [address] 2 D/M-MODE ECHOCARDIOGRAM Name: ASPENABIGAIL BERNSTEIN Room #: 431-P ADM IN M.R.#: [id number] Admission: 10/04/17 Attend Phys: Paul Stallings, Discharge: Date of : 32 Date of Service: 10/05/17 1138 Report #: [id number] THIS REPORT FOR: //name// APPROVED REPORT Study performed: 10/05/2017 09:49:40 EXAM: Comprehensive 2D, Doppler, and color-flow Echocardiogram Patient Location: Bedside Room #: 431 Status: routine BSA: 1.85 HR: 91 bpm BP: 139/66 mmHg Other Information Study Quality: Adequate Indications Dyspnea CAD Cardiomyopathy Hypertension/HDD 2D Dimensions IVC: 17.00 mm Volumes Left Atrial Volume (Systole) Single Plane 4CH: 60.75 mL Single Plane 2CH: 36.78 mL LA ESV Index: 27.00 mL/m2 Aortic Valve AoV Peak Hima.: 1.19 m/s AO Peak Gr.: 5.65 mmHg LVOT Max P.41 mmHg LVOT Max V: 0.78 m/s Mitral Valve E/A Ratio: 1.6 MV Decel. Time: 170.88 ms MV E Max Hima.: 0.85 m/s MV A Hima.: 0.54 m/s MV PHT: 49.56 ms IVRT: 110.73 ms [facility] [address] [place] [address] 2 D/M-MODE ECHOCARDIOGRAM Name: ABIGAIL LOUISE Room #: 431-P ADM IN M.R.#: [id number] Admission: 10/04/17 Attend Phys: Paul Stallings, Discharge: Date of : 32 Date of Service: 10/05/17 1138 Report #: [id number] Pulmonary Valve PV Peak Hima.: 1.03 m/s PV Peak Gr.: 4.28 mmHg Tricuspid Valve TR Peak Hima.: 3.42 m/s TR Peak Gr.: 46.81 mmHg PA Pressure: 51.00 mmHg Left Ventricle The left ventricle is normal size. There is normal left ventricular wall thickness. Left ventricular systolic function is normal. LVEF is 55% This study is not technically sufficient to allow evaluation of the LV diastolic function. Right Ventricle Right ventricle is grossly normal in size. RVH The right ventricular systolic function is normal. Atria The left atrium size is normal. The right atrium size is normal. Aortic Valve Aortic valve is calcified. No aortic regurgitation is present. There is no aortic valvular stenosis. Mitral Valve Mild mitral annular calcification Mild mitral regurgitation. No evidence of mitral valve stenosis. Tricuspid Valve The tricuspid valve is normal in structure. There is trace to mild tricuspid regurgitation. Estimated PAP 50 mmHg. There is moderate pulmonary hypertension. Pulmonic Valve The pulmonary valve is normal in structure. There is no pulmonic valvular regurgitation. Great Vessels The aortic root is normal in size. IVC is normal in size and collapses >50% with inspiration. Pericardium There is no pericardial effusion. [facility] [address] [place] [address] 2 D/M-MODE ECHOCARDIOGRAM Name: ABIGAIL LOUISE Room #: 431-P ADM IN .R.#: [id number] Admission: 10/04/17 Attend Phys: Paul Stallings, Discharge: Date of : 32 Date of Service: 10/05/17 1138 Report #: [id number] <Conclusion> Left ventricular systolic function is normal. LVEF is 55% Right ventricle is grossly normal in size. RVH Aortic valve is calcified. No aortic regurgitation or stenosis. Mild mitral annular calcification Mild mitral regurgitation. There is trace to mild tricuspid regurgitation. Estimated pulmonary artery pressure of 50 mmHg. There is no pericardial effusion. <ELECTRONICALLY SIGNED> By: Quincy Carrillo MD, [facility] 10/05/17 1138 1138 113 Quincy Carrillo MD, FACC /INF
--- NOTE | ~2017-10-04 | HC ---
[facility] [place] [address] CONSULTATION Name: ABIGAIL LOUISE Room #: 244-P ADM IN M.R.#: [id number] Admission: 10/04/17 Attend Phys: Paul Stallings MD Discharge: Date of : 32 Report #: [id number] THIS REPORT FOR: //name// CC: Paul Stallings REASON FOR CONSULTATION: Shortness of breath. HISTORY OF PRESENT ILLNESS: The patient is an 86-year-old gentleman with a history of chronic lung disease, coronary artery disease with remote stenting, paroxysmal atrial fibrillation, diastolic heart failure, peripheral vascular disease who presents with increasing shortness of breath. He has known severe oxygen dependent lung disease with an FEV1 of 30% of predicted. He now presents with increasing shortness of breath and audible wheezing. He denies chest heaviness or pressure. No orthopnea, paroxysmal nocturnal dyspnea, or lower extremity edema. No history of near syncope or syncope. He does have a history of paroxysmal atrial fibrillation and/or atrial flutter and is thought to represent prohibitively high bleeding risk. He was anticoagulated previously, although this was discontinued due to recurrent GI bleeding. In 1974, he underwent ASD repair. He has a history of remote stenting of the circumflex, his ejection fraction is normal/stress study in 2016 was nonischemic. He denies fevers. He has had occasional sweats. No history of palpitations, near syncope or syncope. PAST MEDICAL HISTORY: Notable for herniorrhaphy, Crohn's disease with previous bowel resection, rotator cuff surgery, knee surgery, peripheral disease with peripheral stenting, coronary artery disease with circumflex stenting. SOCIAL HISTORY: He is . He is retired from [employer]. He has not smoked in several decades, although he was a very heavy smoker before he quit. FAMILY HISTORY: Unremarkable for premature coronary artery disease. REVIEW OF SYSTEMS: All systems negative except as that noted above. ALLERGIES: Include REMICADE, MERCAPTOPURINE, CARVEDILOL, MORPHINE, and LEVAQUIN. MEDICATIONS: Include Advair 250/50 one puff twice daily, albuterol nebulizer, Simbrinza twice daily, finasteride, losartan 25 mg daily, Aldactone 25 mg daily, sulfasalazine 1000 mg twice daily, Spiriva, torsemide 20 mg as needed for edema, and eye drops. PHYSICAL EXAMINATION: GENERAL: Reveals a pleasant gentleman, in no distress. VITAL SIGNS: Blood pressure is 130/60, heart rate of 80 and regular, he is afebrile, 5 feet 11 inches tall, [address] [place] [address] CONSULTATION Name: ABIGAIL LOUISE Room #: [facility] IN M.R.#: [id number] Admission: 10/04/17 Attend Phys: Paul Stallings MD Discharge: Date of : 32 Report #: [id number] HEENT: There are neither xanthelasma, subcutaneous xanthomata, oral mucosal or digital cyanosis or kyphoscoliosis present. CHEST: Reveals audible mid to end expiratory wheezes. There is a prolonged expiratory phase. CARDIAC: Regular rate and rhythm with normal S1, S2. ABDOMEN: Soft and nontender. EXTREMITIES: Without cyanosis, clubbing, or edema. Radial pulses are 2+. NEUROLOGIC: He is alert with a nonfocal exam. EKG, sinus rhythm. IMPRESSION: 1. Chronic obstructive pulmonary disease exacerbation. 2. Severe oxygen dependent lung disease (FEV1 30% of predicted). 3. Coronary artery disease, clinically stable with remote circumflex stenting. 4. Remote atrial septal defect repair. 5. Hypertension. 6. Peripheral vascular disease. 7. Crohn's disease. 8. Paroxysmal atrial fibrillation; contraindication to anticoagulant therapy. RECOMMENDATIONS: 1. Echocardiogram with Doppler. 2. I agree with primary treatment directed towards exacerbation in his lung disease. His cardiovascular status and volume status are stable. 3. No medication changes made at this point. I have discussed these issues with the patient trials and his . Thank you for asking me to participate in his care. <ELECTRONICALLY SIGNED> By: Quincy Carrillo MD, [facility] 10/06/17 1637 0848 1010 Quincy Carrillo MD, FACC /nt
--- NOTE | ~2017-10-04 | HC ---
[facility] [place] [address] CONSULTATION Name: ABIGAIL LOUISE Room #: 364-P ADM IN M.R.#: [id number] Admission: 10/04/17 Attend Phys: Paul Stallings MD Discharge: Date of : 32 Report #: [id number] THIS REPORT FOR: //name// CC: Paul Stallings DATE OF SERVICE: 10/14/2017 HISTORY OF PRESENT ILLNESS: The patient is an 86-year-old white male with a history of COPD with noted severe impairment, admitted with increased shortness of breath. He was noted to have severe respiratory failure, was intubated, had oasdn-mm-uysyxrj hypercapnic hypoxic respiratory failure. Remained intubated on mechanical ventilation for a week in the Intensive Care Unit. He was able to be extubated. He continues to be followed closely by Pulmonary Medicine as well as being seen by Gastroenterology for a noted small GI bleed for which he has been on IV Protonix. He is noted to have considerable weakness with a marked decrease in his functional mobility and ADLs. He has been on IV Solu-Medrol. We are seeing him in rehabilitation medicine consultation. PAST MEDICAL HISTORY: Includes COPD. Noted to have severe impairment per Pulmonary Medicine, glaucoma of the right eye. He had a stroke affecting the right eye, cardiac stenting x 1, CHF, repair of a hole in the heart in 1974 with a patch, cardiomyopathy, and atrial fibrillation. His past medical history also is noted for Crohn's. PAST SURGICAL HISTORY: Includes right total knee replacement, he has had a right total shoulder, bilateral cataract surgeries. MEDICATIONS: Please see the full medication listing. These medications are noted to include his vitamins, herbals, and supplements. ALLERGIES: INFLIXIMAB, MERCAPTOPURINE, MESALAMINE, CARVEDILOL, MORPHINE, AND LEVOFLOXACIN. HABITS: Tobacco abuse, quit greater than 1 year ago. History of some alcohol usage. SOCIAL HISTORY: Lives with his , independent living apartment, one of the villas at [facility]. No steps. He did not utilize gait aids in the apartment, only on occasion would use a walker out in the community. He was on O2 only at night. REVIEW OF SYSTEMS: Complains of significant weakness. No focal extremity pain complaints. Denies any current chest pain. No current shortness of breath at rest. No abdominal discomfort. PHYSICAL EXAMINATION: [facility] [address] [place] [address] CONSULTATION Name: ABIGAIL LOUISE Room #: 364-P [facility] IN M.R.#: [id number] Admission: 10/04/17 Attend Phys: Paul Stallings MD Discharge: Date of : 32 Report #: [id number] GENERAL: An 86-year-old white male in no obvious distress. VITAL SIGNS: Last recorded temperature 36.7, pulse 82, respirations 20, blood pressure 172/98. NEUROLOGIC: The patient is alert, follows basic 1 step commands. Defer some of his answers to his . Facies appeared symmetric. He is currently on 2 liters nasal prong O2. Functional range of motion of the upper extremities. Strength is a grade 4- to 3+/5. In his lower extremities, there is no focal calf swelling, functional range of motion, strength is grade 3+. DTRs are trace to 1. He was max assist x 2 for bed to chair and toilet transfers are max assist. 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 2. Severe impairment chronic obstructive pulmonary disease with acute on chronic hypercapnic hypoxic respiratory failure. 3. Mechanical ventilation with ICU stay x 1 week. 4. Dysphagia, on mechanical soft nectar thickened liquid. 5. Medical complexity with generalized debilitation. 6. Acute exacerbation of chronic obstructive pulmonary disease. 7. Congestive heart failure. 8. Diabetes mellitus. 9. Hypertension. 10. Upper gastrointestinal small bleed noted to be stable. 11. Hyperkalemia. PLAN: We are assessing the patient regarding tolerance for therapies. Discussion with the . He certainly may be a candidate for an acute 5 [place] rehab stay. We will be glad to follow along with you regarding his rehab therapy needs. By: 1110 1232 Jose G Kwok MD /nt
--- NOTE | ~2017-10-04 | HC ---
[facility] [place] [address] CONSULTATION Name: ABIGAIL LOUISE Room #: 431-P ADM IN M.R.#: [id number] Admission: 10/04/17 Attend Phys: Paul Stallings MD Discharge: Date of : 32 Report #: [id number] THIS REPORT FOR: //name// CC: Paul Stallings REFERRAL PHYSICIAN: Dr. Stallings. REASON FOR REFERRAL: Dyspnea. HISTORY OF PRESENT ILLNESS: The patient is an 86-year-old white male with COPD, presents to the Emergency Room with dyspnea. A pulmonary consultation was requested. The patient is normally followed by Dr. Kenny Salas in the office. He has known COPD along with pleural plaques. He was last hospitalized about a year ago. He was doing fairly well until 2 days prior to presentation, he started developing increasing dyspnea. Last evening, dyspnea became much more worse. For that reason, he presents to the Emergency Room. He will see Dr. Salas tomorrow in the office. Otherwise, denies any fever, night sweats or chills, chest pain, productive cough, hemoptysis. PAST MEDICAL HISTORY: COPD, emphysema type. Anxiety disorder, glaucoma involving the right eye, CVA involving the right eye. Coronary artery disease, status post stent placement. Hypertension, Crohn disease, atrial fibrillation, ischemic cardiomyopathy. PAST SURGICAL HISTORY: Umbilical herniorrhaphy, right shoulder surgery, tonsillectomy, dental implants, right knee surgery. ALLERGIES: REMICADE, WHICH CAUSES RASH AND PNEUMONIA. MERCAPTOPURINE CAUSES RASH. ASACOL CAUSES RASH. CARVEDILOL CAUSES COUGH. MORPHINE CAUSES PSYCHOSIS. LEVAQUIN CAUSES PRURITUS, MUSCLE CRAMPS. HOME MEDICATIONS: List reviewed, this includes Cozaar, balsalazide, Demadex, Advair. Simbrinza eyedrops, Proscar, nebulized albuterol, Centrum, Travatan, spironolactone, Spiriva, ProAir. FAMILY HISTORY: Noncontributory. SOCIAL HISTORY: The patient has smoked, but quit many years ago. He is . Denies any alcohol use. REVIEW OF SYSTEMS: As mentioned above, otherwise 10-point system review negative. [facility] [address] [place] [place] [address] CONSULTATION Name: ABIGAIL LOUISE Room #: 431-P [facility] IN [facility].#: [id number] Admission: 10/04/17 Attend Phys: Paul Stallings MD Discharge: Date of : 32 Report #: [id number] PHYSICAL EXAMINATION: GENERAL: He is awake, alert, appears mildly dyspneic. VITAL SIGNS: Temperature is 98 degrees Fahrenheit, pulse is 100, respiratory rate is 21, blood pressure 180/72 mmHg, saturation is 97%. HEENT: Normocephalic, atraumatic. NECK: Supple, no lymphadenopathy or thyromegaly. CHEST: Breath sounds are fair bilaterally with few scattered crackles. Mild expiratory wheezes. CARDIOVASCULAR: Normal S1, S2. There are no murmurs or gallop. There is no JVD, no carotid bruit. Pulses are 2+/4+ bilaterally. ABDOMEN: Soft, nontender, no organomegaly or masses felt. GENITOURINARY: Deferred. RECTAL: Deferred. EXTREMITIES: No edema, cyanosis or clubbing. LABORATORY DATA: Chest x-ray shows mild bilateral infiltrates, greater in the right than the left. The patient does have a history of pleural plaques, which gives the impression of infiltrates. CT chest from 11/2016 was reviewed. Electrolytes: Sodium 131, potassium 4.2, chloride 98, CO2 of 27, BUN is 17, creatinine is 1.1. Liver enzymes unremarkable. WBC 5700, hemoglobin 12.2, platelets are normal. IMPRESSION: 1. Acute hypoxic respiratory failure in this 86-year-old white male. The etiology is due to exacerbation of chronic obstructive pulmonary disease. No obvious evidence of pneumonia, though cannot rule out early lower respiratory tract infection. 2. Chronic obstructive pulmonary disease, severe impairment, baseline FEV1 of 0.89 liters, 30% predicted, exacerbation. 3. Hyponatremia, chronic, likely due to severe pulmonary disease. 4. Bilateral pleural plaques. 5. Crohn disease. 6. Poor skin turgor, suggest for volume depletion. RECOMMENDATION: We would recommend broad-spectrum antibiotics, corticosteroids, bronchodilators. IV fluids also recommended. DVT and GI prophylaxis will be addressed. Thank you for this consultation. <ELECTRONICALLY SIGNED> By: Ba Noyola MD 10/05/17 1444 1632 1758 Ba Noyola MD /nt
--- NOTE | ~2017-10-04 | EKG ---
[address] [email or web address] [address] ELECTROCARDIOGRAM REPORT Name: ABIGAIL LOUISE Room #: 431-P ADM IN M.R.#: [id number] Admission: 10/04/17 Attend Phys: Paul Stallings MD Discharge: Date of : 32 Report #: [id number] THIS REPORT FOR: //name// [facility] ED Test Date: 2017-10-04 Test Time: 08:26:47 Pat Name: ABIGAIL LOUISE Department: Room: Gender: M Hand Salter: sybil : 1930 Requested By: Elías Snell Order Number: [id number] MD: hCicho Palafox Measurements Intervals [place] Rate: 82 P: 101 [place]: 187 QRS: 92 QRSD: 121 T: 39 QT: 403 QTc: 471 Interpretive Statements Right and left arm electrode reversal, interpretation assumes no reversal Sinus rhythm Ventricular trigeminy Consider left ventricular hypertrophy Compared to ECG 09/27/2016 06:58:34 Ventricular premature complex(es) now present Left ventricular hypertrophy now present ST (T wave) deviation now present Sinus tachycardia no longer present Electronically Signed On 10-04-2017 13:14:53 CDT by Chicho Palafox [email or web address] <ELECTRONICALLY SIGNED> By: Chicho Palafox MD 10/04/17 1314 5 5 Chicho Palafox MD /EPI
[~2017-10-04 08:10] MED LIST changes: -DEMADEX20 MG PO; -SYNTHROID50 MCG PO
[2017-10-04 09:03] LABS: BASOPHILS 0.2 % (0.0-2.0); EOSINOPHILS 0.1 % (0.0-3.0); HEMATOCRIT 36.8 % (42.0-52.0); HEMOGLOBIN 12.2 gm/dL (14.0-18.0); LYMPHOCYTES 5.1 % (24.0-44.0); MCH 33.5 pg (26.0-34.0); MCHC 33.1 g/dL (28.0-37.0); MCV 101.2 fL (80.0-100.0); PLATELET COUNT 154 thou/uL (150-400); POLYS 87.6 % (36.0-66.0); RBC 3.64 mil/uL (4.50-6.00); RDW 13.9 % (10.5-14.5); WBC 5.7 thou/uL (4.0-11.0)
[2017-10-04 09:07] LABS: ANION GAP 6 mmol/L (7-16); BUN 19 mg/dL (7-18); CALCIUM 8.8 mg/dL (8.5-10.1); CHLORIDE 98 mmol/L (98-107); CO2 27 mmol/L (21-32); CREATININE 1.1 mg/dL (0.7-1.3); GLUCOSE 116 mg/dL (74-106); POTASSIUM 4.2 mmol/L (3.5-5.1); SODIUM 131 mmol/L (136-145)
[2017-10-04 09:09] VITALS: BP 170/89
[2017-10-04 09:15] LABS: ALBUMIN 3.7 g/dL (3.4-5.0); SGOT 24 U/L (15-37); SGPT 27 U/L (30-65); TOTAL BILIRUBIN 0.6 mg/dL (<0.1-1.0); TOTAL PROTEIN 7.3 g/dL (6.4-8.2); TROPONIN-I < 0.04 ng/mL (<0.06)
[2017-10-04] MEDS ORDERED: DEMADEX20 MG PO (10:11)
[2017-10-04 10:29] VITALS: BP 181/72
[2017-10-04 11:28] VITALS: BP 181/72
[2017-10-04 12:03] VITALS: BP 150/86
[2017-10-04] MEDS ORDERED: SYNTHROID50 MCG PO (17:16)
[2017-10-04 20:00] VITALS: BP 157/67
[2017-10-05 04:30] VITALS: BP 124/52; BP 96/68
[2017-10-05 05:12] LABS: HEMATOCRIT 34.3 % (42.0-52.0); HEMOGLOBIN 11.6 gm/dL (14.0-18.0); MCH 33.8 pg (26.0-34.0); MCHC 33.9 g/dL (28.0-37.0); MCV 99.9 fL (80.0-100.0); RBC 3.43 mil/uL (4.50-6.00); RDW 13.7 % (10.5-14.5); WBC 5.9 thou/uL (4.0-11.0)
[2017-10-05 05:22] LABS: CALCIUM 8.4 mg/dL (8.5-10.1)
[2017-10-05 08:05] VITALS: BP 139/66
[2017-10-05 13:09] LABS: BE(vivo) 0.4 mmol/L (-2 to +3); HCO3 26.9 mmol/L (22.0-26.0); PCO2 51.2 mmHg (35.0-45.0); PO2 88.9 mmHg (80.0-100.0); pH 7.339 (7.360-7.450); sO2 96.2 % (92.0-98.0)
[2017-10-05 16:43] VITALS: BP 152/98
[2017-10-05 19:25] VITALS: BP 184/90
[2017-10-05 23:29] VITALS: BP 147/66
[2017-10-06] VITALS (26 sets, daily range): BP systolic 74–195; BP diastolic 43–138
[2017-10-06 05:23] LABS: HEMATOCRIT 36.3 % (42.0-52.0); HEMOGLOBIN 11.9 gm/dL (14.0-18.0); MCH 33.3 pg (26.0-34.0); MCHC 32.9 g/dL (28.0-37.0); MCV 101.3 fL (80.0-100.0); RBC 3.58 mil/uL (4.50-6.00); RDW 13.8 % (10.5-14.5); WBC 8.8 thou/uL (4.0-11.0)
[2017-10-06 05:33] LABS: CALCIUM 8.6 mg/dL (8.5-10.1); CREATININE 1.2 mg/dL (0.7-1.3); POTASSIUM 5.5 mmol/L (3.5-5.1)
[2017-10-06 06:42] LABS: BE(vivo) -1.5 mmol/L (-2 to +3); HCO3 27.8 mmol/L (22.0-26.0); PCO2 69.4 mmHg (35.0-45.0); PO2 96.1 mmHg (80.0-100.0); pH 7.221 (7.360-7.450); sO2 95.7 % (92.0-98.0)
[2017-10-06 11:30] LABS: BE(vivo) -0.5 mmol/L (-2 to +3); HCO3 26.9 mmol/L (22.0-26.0); PCO2 57.2 mmHg (35.0-45.0)
[2017-10-06 11:31] LABS: pH 7.291 (7.360-7.450)
[2017-10-07 05:16] LABS: BE(vivo) -1.4 mmol/L (-2 to +3); HCO3 24.1 mmol/L (22.0-26.0); PCO2 43.2 mmHg (35.0-45.0); PO2 99.2 mmHg (80.0-100.0); pH 7.364 (7.360-7.450); sO2 97.3 % (92.0-98.0)
[2017-10-07 05:53] LABS: HEMATOCRIT 34.9 % (42.0-52.0); HEMOGLOBIN 11.8 gm/dL (14.0-18.0); MCH 33.8 pg (26.0-34.0); MCHC 33.9 g/dL (28.0-37.0); MCV 99.6 fL (80.0-100.0); RBC 3.5 mil/uL (4.50-6.00); RDW 13.5 % (10.5-14.5); WBC 7.4 thou/uL (4.0-11.0)
[2017-10-07 06:07] LABS: CALCIUM 8.2 mg/dL (8.5-10.1); CREATININE 1.1 mg/dL (0.7-1.3); POTASSIUM 4.9 mmol/L (3.5-5.1)
[2017-10-07 16:53] LABS: DIRECT BILIRUBIN 0.2 mg/dL (<0.1-0.3); TOTAL BILIRUBIN 0.4 mg/dL (<0.1-1.0); TOTAL PROTEIN 6.1 g/dL (6.4-8.2)
[2017-10-07 22:10] VITALS: BP 142/63
[2017-10-08 00:47] VITALS: BP 90/50
[2017-10-08 02:35] VITALS: BP 130/75
[2017-10-08 04:18] LABS: MCH 33.2 pg (26.0-34.0); MCHC 33.4 g/dL (28.0-37.0); MCV 99.4 fL (80.0-100.0); RBC 3.62 mil/uL (4.50-6.00); RDW 13.4 % (10.5-14.5); WBC 6.9 thou/uL (4.0-11.0)
[2017-10-08 04:22] LABS: CALCIUM 8.1 mg/dL (8.5-10.1)
[2017-10-08 05:04] LABS: BE(vivo) -0.1 mmol/L (-2 to +3); HCO3 24.7 mmol/L (22.0-26.0); PCO2 40.8 mmHg (35.0-45.0); PO2 99.7 mmHg (80.0-100.0); sO2 97.5 % (92.0-98.0)
[2017-10-08 18:00] LABS: HEMATOCRIT 35.8 % (42.0-52.0); HEMOGLOBIN 12.2 gm/dL (14.0-18.0); MCH 33.6 pg (26.0-34.0); MCV 98.7 fL (80.0-100.0); RBC 3.63 mil/uL (4.50-6.00); RDW 13.5 % (10.5-14.5); WBC 6.5 thou/uL (4.0-11.0)
[2017-10-08 19:23] VITALS: BP 133/64
[2017-10-09] VITALS (21 sets, daily range): BP systolic 83–146; BP diastolic 45–73
[2017-10-09 04:12] LABS: HEMATOCRIT 34.4 % (42.0-52.0); HEMOGLOBIN 11.7 gm/dL (14.0-18.0); MCH 33.8 pg (26.0-34.0); MCHC 34.1 g/dL (28.0-37.0); MCV 98.8 fL (80.0-100.0); RBC 3.48 mil/uL (4.50-6.00); RDW 13.9 % (10.5-14.5); WBC 6.3 thou/uL (4.0-11.0)
[2017-10-09 04:24] LABS: CALCIUM 7.9 mg/dL (8.5-10.1); POTASSIUM 4.9 mmol/L (3.5-5.1)
[2017-10-09 05:11] LABS: BE(vivo) -1.6 mmol/L (-2 to +3); HCO3 22.3 mmol/L (22.0-26.0); PCO2 35.3 mmHg (35.0-45.0); PO2 108.1 mmHg (80.0-100.0); pH 7.419 (7.360-7.450); sO2 98.1 % (92.0-98.0)
[2017-10-10] VITALS (48 sets, daily range): BP systolic 83–160; BP diastolic 42–78
[2017-10-10 04:51] LABS: HEMATOCRIT 34.5 % (42.0-52.0); HEMOGLOBIN 11.7 gm/dL (14.0-18.0); MCH 33.6 pg (26.0-34.0); MCHC 34.1 g/dL (28.0-37.0); MCV 98.8 fL (80.0-100.0); RBC 3.49 mil/uL (4.50-6.00); RDW 13.7 % (10.5-14.5); WBC 6.3 thou/uL (4.0-11.0)
[2017-10-10 05:01] LABS: CALCIUM 8.3 mg/dL (8.5-10.1); CREATININE 1.2 mg/dL (0.7-1.3)
[2017-10-10 05:48] LABS: BE(vivo) -3.4 mmol/L (-2 to +3); HCO3 21.6 mmol/L (22.0-26.0); PO2 88.9 mmHg (80.0-100.0); pH 7.362 (7.360-7.450); sO2 96.5 % (92.0-98.0)
[2017-10-11] VITALS (38 sets, daily range): BP systolic 91–173; BP diastolic 42–80
[2017-10-11 06:52] LABS: ABSOLUTE NEUTROPHILS 6.1 thou/uL (1.4-8.2); BASOPHILS 0.2 % (0.0-2.0); HEMATOCRIT 35.1 % (42.0-52.0); HEMOGLOBIN 11.8 gm/dL (14.0-18.0); LYMPHOCYTES 1.5 % (24.0-44.0); MCH 33.6 pg (26.0-34.0); MCHC 33.7 g/dL (28.0-37.0); MCV 99.6 fL (80.0-100.0); MONOCYTES 3.5 % (1.0-8.0); PLATELET COUNT 152 thou/uL (150-400); POLYS 94.8 % (36.0-66.0); RBC 3.53 mil/uL (4.50-6.00); RDW 13.7 % (10.5-14.5); WBC 6.4 thou/uL (4.0-11.0)
[2017-10-11 07:04] LABS: CALCIUM 8.3 mg/dL (8.5-10.1); CREATININE 0.9 mg/dL (0.7-1.3); POTASSIUM 5.6 mmol/L (3.5-5.1)
[2017-10-12] VITALS (29 sets, daily range): BP systolic 95–182; BP diastolic 43–93
[2017-10-12 04:26] LABS: CALCIUM 8.4 mg/dL (8.5-10.1); POTASSIUM 5.6 mmol/L (3.5-5.1)
[2017-10-12 08:57] LABS: BE(vivo) -2.4 mmol/L (-2 to +3); HCO3 22.6 mmol/L (22.0-26.0); PCO2 39.8 mmHg (35.0-45.0); PO2 90.8 mmHg (80.0-100.0); pH 7.372 (7.360-7.450)
[2017-10-12 08:59] LABS: sO2 96.8 % (92.0-98.0)
[2017-10-13] VITALS (26 sets, daily range): BP systolic 113–178; BP diastolic 55–88
[2017-10-13 04:46] LABS: CALCIUM 8.4 mg/dL (8.5-10.1); CREATININE 0.9 mg/dL (0.7-1.3); POTASSIUM 5.5 mmol/L (3.5-5.1)
[2017-10-13 05:02] LABS: BE(vivo) 4.2 mmol/L (-2 to +3); HCO3 28.9 mmol/L (22.0-26.0); PCO2 43.7 mmHg (35.0-45.0); PO2 77.6 mmHg (80.0-100.0); pH 7.439 (7.360-7.450); sO2 95.8 % (92.0-98.0)
[2017-10-13 05:02] LABS: HEMATOCRIT 37.1 % (42.0-52.0); HEMOGLOBIN 12.1 gm/dL (14.0-18.0); MCH 32.7 pg (26.0-34.0); MCHC 32.7 g/dL (28.0-37.0); RBC 3.71 mil/uL (4.50-6.00); RDW 13.5 % (10.5-14.5)
[2017-10-14] VITALS (11 sets, daily range): BP systolic 116–172; BP diastolic 59–98
[2017-10-14 05:08] LABS: HEMATOCRIT 38.2 % (42.0-52.0); HEMOGLOBIN 12.7 gm/dL (14.0-18.0); MCH 32.6 pg (26.0-34.0); MCHC 33.1 g/dL (28.0-37.0); MCV 98.2 fL (80.0-100.0); RBC 3.89 mil/uL (4.50-6.00); RDW 13.3 % (10.5-14.5); WBC 12.7 thou/uL (4.0-11.0)
[2017-10-14 05:14] LABS: CALCIUM 8.5 mg/dL (8.5-10.1); CREATININE 0.9 mg/dL (0.7-1.3)
[2017-10-15 02:23] VITALS: BP 143/83
[2017-10-15 07:05] VITALS: BP 149/82
[2017-10-15 11:39] VITALS: BP 148/87
[2017-10-15 20:45] VITALS: BP 142/77
[2017-10-16 06:02] VITALS: BP 132/62
[2017-10-16 07:43] VITALS: BP 147/72
== END 2017-10-16 11:16 | DRG 870 ==
LOC: ER 08:10 → ICU 10:09 → EROBS 10:09 → 4E 10:09 → 3W 10-05 18:05 → ICU 10-06 08:51 → 3W 10-14 05:37
PROVIDERS: Emergency Medicine; Family Medicine; Hospitalist; Internal Medicine Pulmonary Disease
DX: A41.9 Sepsis, unspecified organism (principal); J96.21 Acute and chronic respiratory failure with hypoxia; J18.9 Pneumonia, unspecified organism; E43 Unspecified severe protein-calorie malnutrition; J96.22 Acute and chronic respiratory failure with hypercapnia; J44.1 Chronic obstructive pulmonary disease with (acute) exacerbation; E87.1 Hypo-osmolality and hyponatremia; K50.90 Crohn's disease, unspecified, without complications; G72.81 Critical illness myopathy; N17.9 Acute kidney failure, unspecified; J44.0 Chronic obstructive pulmonary disease with (acute) lower respiratory infection; Q21.1 Atrial septal defect; F41.9 Anxiety disorder, unspecified; H40.9 Unspecified glaucoma; I50.9 Heart failure, unspecified; Z96.611 Presence of right artificial shoulder joint; Z96.651 Presence of right artificial knee joint; M19.90 Unspecified osteoarthritis, unspecified site; I25.10 Atherosclerotic heart disease of native coronary artery without angina pectoris; I25.5 Ischemic cardiomyopathy; J92.9 Pleural plaque without asbestos; I48.0 Paroxysmal atrial fibrillation; R13.10 Dysphagia, unspecified; E87.5 Hyperkalemia; Z66 Do not resuscitate; E11.51 Type 2 diabetes mellitus with diabetic peripheral angiopathy without gangrene; K59.00 Constipation, unspecified; E03.9 Hypothyroidism, unspecified; Z95.5 Presence of coronary angioplasty implant and graft; Z98.818 Other dental procedure status; Z98.42 Cataract extraction status, left eye; Z86.73 Personal history of transient ischemic attack (TIA), and cerebral infarction without residual deficits; Z88.6 Allergy status to analgesic agent; Z98.41 Cataract extraction status, right eye; Z88.1 Allergy status to other antibiotic agents; Z88.8 Allergy status to other drugs, medicaments and biological substances; Z87.891 Personal history of nicotine dependence; Z99.81 Dependence on supplemental oxygen; Z82.49 Family history of ischemic heart disease and other diseases of the circulatory system; Z79.01 Long term (current) use of anticoagulants; Z68.23 Body mass index [BMI] 23.0-23.9, adult; I11.0 Hypertensive heart disease with heart failure
CPT/HCPCS: 10078; 10183; 10879; 27000; 62110; 62900; 85010

== ENCOUNTER 2017-10-16 09:21 | Inpatient (IN) | payer OTHER, MEDICARE ==
[~2017-10-16] VITALS: Ht 180.3 cm; Wt 65.7 kg
--- NOTE | ~2017-10-16 | H ---
[facility] [place] [address] HISTORY AND PHYSICAL Name: ABIGAIL LOUISE Room #: 506-1 ADM IN M.R.#: [id number] Admission: 10/16/17 Attend Phys: Jose G Kwok MD Discharge: Date of : 32 Report #: [id number] THIS REPORT FOR: //name// CC: Jose G Stallings DATE OF SERVICE: 10/16/2017 HISTORY OF PRESENT ILLNESS: This is an 86-year-old gentleman who presented to the hospital with increasing shortness of breath. He was diagnosed with severe respiratory failure and initially intubated in the ICU, on mechanical ventilation x 7 days. He was able to be extubated and placed on nasal cannula. He was also noted to have a small GI bleed and COPD exacerbation, treated with IV steroids and antibiotics. He has also had electrolyte abnormalities that have resolved. He remained generally debilitated and has now been admitted to acute inpatient rehab for further strengthening. Today, he reports shortness of air and productive cough with exertion. Denies chest pain or palpitations. He denies pain at present. Appetite is fair. PAST MEDICAL HISTORY: COPD, glaucoma of the right eye, history of stroke affecting the right eye, cardiac stent x 1, CHF, repair of hole in the heart, cardiomyopathy, AFib, Crohn's disease. PAST SURGICAL HISTORY: Right total knee replacement, right total shoulder, and bilateral cataract surgeries. ALLERGIES: MESALAMINE, CARVEDILOL, MORPHINE, LEVOFLOXACIN, INFLIXIMAB, AND MERCAPTOPURINE. HABITS: Quit smoking cigarettes over a year ago. Occasional alcohol use. No illicit drug use. SOCIAL HISTORY: He lives in an independent living apartment at [facility] with his , there are zero steps utilized. No assistive device in the apartment. He did utilize an occasional walker for longer community distances. He does have O2 at 2 liters at home for nighttime and as needed during the day for O2 sat dropping below 90%. CURRENT MEDICATIONS: Aldactone 25 mg daily, multivitamin 1 tablet daily, losartan 50 mg daily, finasteride 5 mg daily, fish oil 1000 mg daily, Synthroid 25 mcg daily, melatonin 5 mg at bedtime, budesonide 0.5 mg inhalation b.i.d., albuterol 2.5 mg q.6 hours inhalation, torsemide 20 mg daily, albuterol 2.5 mg q.8 hours as-needed inhalation for shortness of breath. PHYSICAL EXAMINATION: VITAL SIGNS: 134/74, respirations 22, pulse 82, temperature 97.8. He is 100% [place] [address] HISTORY AND PHYSICAL Name: ABIGAIL LOUISE Room #: 506-1 [facility] IN M.R.#: [id number] Admission: 10/16/17 Attend Phys: Jose G Kwok MD Discharge: Date of : 32 Report #: [id number] O2 on 2 liters nasal cannula. GENERAL: He is awake, alert. He is oriented x 3. He is in no acute respiratory distress. He appears comfortable, talking in full sentences. He is hard of hearing. HEENT: Normocephalic. EOMs are intact. CARDIAC: S1, S2 intact. CHEST: Bilateral wheezes, congestive cough noted, does have a soft voice. ABDOMEN: Bowel sounds are positive, soft, nontender, and nondistended. GENITOURINARY: Deferred. EXTREMITIES: No pedal edema, no calf tenderness. Negative Aleksnadra's sign, negative clonus. He has a left upper extremity PICC line. He does have minimal edema in his upper extremities. Sit to stand is max assist of 2 people; sit to supine, max assist of 2; for bed mobility, max assist; toilet transfers, max assist; toileting, dependent for the commode; dressing, lower body dependent. Functional range of motion in bilateral upper extremities and lower extremities. NEUROLOGIC: Cranial nerves 2-12 grossly intact. Sensation appears intact bilaterally. SKIN: Some scattered bruising, frail skin. IMPRESSION: 1. Critical illness and multifactorial myopathy. 2. Medical complexity with generalized debilitation. 3. Acute exacerbation of COPD. 4. Iwpzn-vn-ousllec hypercapnic hypoxic respiratory failure. 5. Dysphagia. 6. Congestive heart failure. 7. Type 2 diabetes. 8. Hypertension. 9. Upper GI small bleed, may need EGD in the future. PLAN: The patient has been admitted to [address] [place] [address] inpatient rehabilitation for physical, occupational and speech therapies. His hospital consultants will continue to follow. He will have lab work in the morning. He will continue his current respiratory treatments. He will have a team conference on Thursday for further discharge planning. Please see the nurse practitioner, Estephania Bravo's, dictated history and physical. I agree with the above information. The patient was seen by me in consultation prior to coming up to the rehab [facility]. Discussion was held with him and with his again. He had the prolonged stay in the ICU, mechanical ventilation x 7 days with COPD exacerbation, electrolyte abnormalities and has considerable weakness with a critical illness and multifactorial myopathy. See the above noted past medical history, allergies, habits, social history and current medication listing. Current medications include his vitamins, herbals, and supplements. [facility] [address] [place] [address] HISTORY AND PHYSICAL Name: ABIGAIL LOUISE Room #: 506-1 ADM IN M.R.#: [id number] Admission: 10/16/17 Attend Phys: Jose G Kwok MD Discharge: Date of : 32 Report #: [id number] PHYSICAL EXAMINATION: As noted. GENERAL: He is alert. VITALS SIGNS: As noted, appears to have a good appetite. CHEST: Some bilateral wheezing. CARDIAC: Regular rate and rhythm. ABDOMEN: Bowel sounds positive, nontender. GENITOURINARY AND RECTAL: Deferred. EXTREMITIES: He has significant weakness of both lower extremities with strength only a grade 3+. Upper extremities are more of a 4-. He has been max assist x 2 for bed to chair and toilet transfers are max assist. ASSESSMENT AND PLAN: As noted above. 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 He has severe impairment chronic obstructive pulmonary disease with acute on chronic hypoxic hypercapnic respiratory failure. He has dysphagia and is on nectar thickened liquids. Please see the rest of the problem list as noted above. From a postadmission physician evaluation perspective, there are no relevant changes since the preadmission screening. Please see the above review of prior and current medical and functional conditions and comorbidities. Please see the patient's previous and current functional status. As far as risk of complications, the patient has the multiple medical comorbidities as noted above. Initial plan of care involves the interdisciplinary acute inpatient rehabilitation program with the goal of maximizing his functional independence, so he can hopefully return back to his prior living situation. Measurable functional goals would be for him to become modified independent with transfers, mobility and ADLs, so that he can return back to the home setting. Goal is to be independent at a walker/wheelchair level at least initially. Prognosis is reasonably good with estimated length of stay, probably fairly long, as he is at a lower functional level. Potential barriers would include his multiple medical comorbidities and decreased functional status. <ELECTRONICALLY SIGNED> By: AURORA Noble 10/22/17 1544 1335 1410 AURORA Noble /nt
--- NOTE | ~2017-10-16 | PLAN ---
[facility] [place] [address] REHAB UNIT PLAN OF CARE Name: ABIGAIL LOUISE Room #: 506-1 ADM IN M.R.#: [id number] Admission: 10/16/17 Attend Phys: Jose G Kwok MD Discharge: Date of : 32 Report #: [id number] THIS REPORT FOR: //name// CC: Jose G Stallings DATE OF SERVICE: 10/18/2017 PLAN: Overall plan of care is based on the preadmission screen, post-admission physician evaluation and information garnered from therapy assessments. 1. Estimated length of stay is probably at least 2-3 weeks pending progress. 2. Medical prognosis is reasonably good. 3. Anticipated interventions includes the interdisciplinary acute inpatient rehabilitation program with PT, OT working with him. Speech therapy is also involved regarding swallowing issues. He does have myst-ya-horfnwat dysphagia. Rehab nursing is assisting regarding medication management, skin care prophylaxis, bowel and bladder issues and nursing education. The interdisciplinary rehabilitation team is involved as well as the consulting physicians. 4. Anticipated functional outcomes would be for the patient to improve as far as basic transfers and functional mobility to try to ideally become modified independent at the walker level from bed mobility and ADLs and to improve further as far as his swallowing. 5. Discharge destination is back home with his . 6. Expected therapy by discipline includes PT and OT and speech 1 hour per day each five days a week throughout the duration of the acute rehab stay. We may be able to decrease some of the speech therapy with his swallow further improves and increase his PT and OT. <ELECTRONICALLY SIGNED> By: Jose G Kwok MD 10/28/17 1735 [id number] [id number] Jose G Kwok MD /nt
--- NOTE | ~2017-10-16 | H ---
[facility] [place] [address] HISTORY AND PHYSICAL Name: ABIGAIL LOUISE Room #: 506-1 ADM IN M.R.#: [id number] Admission: 10/16/17 Attend Phys: Jose G Kwok MD Discharge: Date of : 32 Report #: [id number] THIS REPORT FOR: //name// CC: Jose G Stallings DATE OF SERVICE: 10/16/2017 ADDENDUM: The admission history and physical addendum that was dictated on the patient was dictated by myself. It is after Estephania Bravo's dictation, his part of the history and physical. <ELECTRONICALLY SIGNED> By: Jose G Kwok MD 10/28/17 1735 1002 1009 Jose G Kwok MD /nt
--- NOTE | ~2017-10-16 | HC ---
[facility] [place] [address] CONSULTATION Name: ABIGAIL LOUISE Room #: 506-1 DIS IN M.R.#: [id number] Admission: 10/16/17 Attend Phys: Jose G Kwok MD Discharge: 10/30/17 Date of : 34 Report #: [id number] THIS REPORT FOR: //name// CC: Jose G Stallings DATE OF SERVICE: 10/24/2017 NEUROBEHAVIORAL STATUS EXAM ATTENDING PHYSICIAN: Jose G Kwok MD BEACH EXPERT: Paul Bridges, PhD CLINICAL PRESENTATION: The patient is an 86-year-old male admitted to the rehab unit at [facility] for comprehensive inpatient rehabilitation program to improve functional mobility and activities of daily living and self-care secondary to deficits from severe respiratory failure. The patient initially was intubated in the ICU and required mechanical ventilation for 7 days prior to being extubated. Past medical history includes COPD, glaucoma, history of stroke affecting the right eye, cardiac stent x 1, congestive heart failure, repair of hole in his heart, cardiomyopathy, AFib and Crohn's disease. The impression on admission to rehab included critical illness and multifactorial myopathy, medical complexity and general debility, acute exacerbation of COPD, [id number] hypoxic respiratory failure, dysphagia, congestive heart failure, type 2 diabetes, hypertension and upper GI small bleed. A complete description of his medical condition and history can be found in his medical record. Neuropsychological consultation was requested to provide assistance in the assessment of cognitive and emotional status and to provide recommendations and services. Prior to this most recent admission, he was living with the assistance of his in their home. He is reported to have been independent with basic activities of daily living, but has discontinued driving. His provided assistance in the management of medication, nutrition and finances. The patient reports he has been able to walk independently. He is a high school graduate. He is retired from employment for [employer]. The patient had one son that at age 19 from a motor vehicle accident. TECHNIQUES UTILIZED: Clinical interview, review of medical records, staff consultation and behavioral observation, mini mental status exam 2 standard version, family interview -- . [facility] [address] [place] [address] CONSULTATION Name: ABIGAIL LOUISE Room #: 506-1 [facility] IN .R.#: [id number] Admission: 10/16/17 Attend Phys: Jose G Kwok MD Discharge: 10/30/17 Date of : 34 Report #: [id number] EXAMINATION FINDINGS: The patient was partially cooperative with the assessment. He does not present with aphasia. There is no report of auditory or visual hallucinations. His mood was irritable. Decreased patience and reduced frustration tolerance is suggested. The patient denies subjective anxiety or depression. However, his notes him to appear increasingly anxious and more dependent on her. His performance on the MMSE 2 brief version was extremely low with a raw score of 9/16. He was 3/3 for initial registration, 2/5 for orientation to time and 3/[address]. He was 0/3 for immediate recall of 3 items after a brief time delay and distraction. His performance on the MMSE 2 standard version was extremely low with a raw score of 16/30. The patient had difficulty with reading and following a single command. He was 0/5 for serial 7's, 2/2 for naming. Difficulty with repetition was noted. Auditory comprehension was within normal limits. The patient showed impairment with being able to read and respond to a single sentence. He refused to complete a drawing task in which he was to copy a simple geometric design or write a sentence. His was quite angry about his initial treatment when in the hospital. She reports having left him in the hospital during his early admission and then upon her return, his condition had deteriorated dramatically and he was on a ventilator. She felt that he has not returned to his baseline level. The patient is presenting with impairment in attention/concentration, immediate memory, executive functioning and insight. He is unable to describe the reason for his hospitalization and unable to provide a description of symptoms or problems. DIAGNOSTIC IMPRESSION: Major neurocognitive disorder (dementia), unspecified -- with irritability and decreased tolerance for frustration -- extent to be determined, moderate to severe currently. Unspecified anxiety disorder. RECOMMENDATIONS: The patient will require assistance in the management of medication, nutrition and finances. Following discharge, a work up for dementia that include neurology consultation may be of benefit. Consider the use of an antidepressant with anxiolytic features. He will most likely function at a higher level when in a more familiar environment. His would benefit from increased educational information in regard to his medical condition. She has been staying at night with him and both of them are increasingly frustrated with his recovery. [address] [address] CONSULTATION Name: ABIGAIL LOUISE Room #: 506-1 DIS IN M.R.#: [id number] Admission: 10/16/17 Attend Phys: Jose G Kwok MD Discharge: 10/30/17 Date of : 34 Report #: [id number] Thank you very much for allowing me to provide the consultation on this patient. <ELECTRONICALLY SIGNED> By: Paul Bridges, PhD 11/02/17 1930 [id number] [id number] Paul Bridges, PhD /nt
[~2017-10-16 09:21] MED LIST changes: +DEMADEX20 MG PO; +SYNTHROID50 MCG PO
[2017-10-16 11:30] VITALS: BP 134/74
[2017-10-16 19:51] VITALS: BP 128/71
[2017-10-17 07:50] LABS: HEMATOCRIT 33.4 % (42.0-52.0); HEMOGLOBIN 11.6 gm/dL (14.0-18.0); MCH 33.8 pg (26.0-34.0); MCHC 34.6 g/dL (28.0-37.0); MCV 97.6 fL (80.0-100.0); RBC 3.42 mil/uL (4.50-6.00); WBC 6.9 thou/uL (4.0-11.0)
[2017-10-17 08:02] LABS: CALCIUM 8.5 mg/dL (8.5-10.1); CREATININE 0.7 mg/dL (0.7-1.3); POTASSIUM 3.9 mmol/L (3.5-5.1)
[2017-10-17 08:10] VITALS: BP 106/62
[2017-10-17 19:06] VITALS: BP 112/61
[2017-10-18 09:20] VITALS: BP 99/50
[2017-10-18 19:27] VITALS: BP 125/62
[2017-10-19 08:00] VITALS: BP 131/74
[2017-10-19 20:14] VITALS: BP 1321/70
[2017-10-20 08:15] VITALS: BP 120/72
[2017-10-20 19:23] VITALS: BP 124/47
[2017-10-21 08:05] VITALS: BP 101/54
[2017-10-21 20:30] VITALS: BP 128/57
[2017-10-22 08:20] VITALS: BP 95/59
[2017-10-22 20:20] VITALS: BP 118/59
[2017-10-23 08:00] VITALS: BP 107/63
[2017-10-23 20:06] VITALS: BP 109/56
[2017-10-24 07:31] VITALS: BP 128/56
[2017-10-24 19:46] VITALS: BP 115/53
[2017-10-25 07:05] VITALS: BP 135/73
[2017-10-25 19:49] VITALS: BP 149/56
[2017-10-26 08:15] VITALS: BP 119/58
[2017-10-26 19:21] VITALS: BP 118/49
[2017-10-27 08:05] VITALS: BP 125/71
[2017-10-27 19:17] VITALS: BP 119/49
[2017-10-28 08:00] VITALS: BP 121/60
[2017-10-28 20:16] VITALS: BP 136/63
[2017-10-29 07:05] VITALS: BP 143/74
[2017-10-29 14:38] LABS: BASOPHILS 0.1 % (0.0-2.0); EOSINOPHILS 0.2 % (0.0-3.0); HEMATOCRIT 29.6 % (42.0-52.0); HEMOGLOBIN 10.1 gm/dL (14.0-18.0); LYMPHOCYTES 3.6 % (24.0-44.0); MCH 34.2 pg (26.0-34.0); MCHC 34.1 g/dL (28.0-37.0); MCV 100.5 fL (80.0-100.0); MONOCYTES 3.1 % (1.0-8.0); PLATELET COUNT 139 thou/uL (150-400); RBC 2.95 mil/uL (4.50-6.00); RDW 13.6 % (10.5-14.5); WBC 5.3 thou/uL (4.0-11.0)
[2017-10-29 14:44] LABS: CALCIUM 8.2 mg/dL (8.5-10.1); CREATININE 1.7 mg/dL (0.7-1.3); POTASSIUM 4.2 mmol/L (3.5-5.1)
[2017-10-29 14:59] VITALS: BP 143/74
[2017-10-29 20:19] VITALS: BP 143/62
[2017-10-30 08:27] VITALS: BP 95/47
[2017-10-30 09:39] LABS: CALCIUM 9.2 mg/dL (8.5-10.1); CREATININE 1.5 mg/dL (0.7-1.3)
[2017-10-30 10:50] VITALS: BP 135/53
[2017-10-30] MEDS ORDERED: PREDNISONE 10 M10 MG PO (13:32)
[2017-10-30 14:06] VITALS: BP 143/74
== END 2017-10-30 14:03 | disposition home health service (06) | DRG 91 ==
PROVIDERS: Family Medicine; Nurse Practitioner Family
DX: G72.81 Critical illness myopathy (principal); J96.22 Acute and chronic respiratory failure with hypercapnia; J96.21 Acute and chronic respiratory failure with hypoxia; J44.1 Chronic obstructive pulmonary disease with (acute) exacerbation; I42.9 Cardiomyopathy, unspecified; K50.90 Crohn's disease, unspecified, without complications; K92.2 Gastrointestinal hemorrhage, unspecified; B37.0 Candidal stomatitis; N17.9 Acute kidney failure, unspecified; I50.9 Heart failure, unspecified; I48.91 Unspecified atrial fibrillation; Z96.651 Presence of right artificial knee joint; R53.81 Other malaise; R13.10 Dysphagia, unspecified; I11.0 Hypertensive heart disease with heart failure; F41.9 Anxiety disorder, unspecified; G47.00 Insomnia, unspecified; H40.9 Unspecified glaucoma; E11.9 Type 2 diabetes mellitus without complications; F01.50 Vascular dementia, unspecified severity, without behavioral disturbance, psychotic disturbance, mood disturbance, and anxiety; Z96.611 Presence of right artificial shoulder joint; K59.00 Constipation, unspecified; I95.9 Hypotension, unspecified; Z86.73 Personal history of transient ischemic attack (TIA), and cerebral infarction without residual deficits; Z95.5 Presence of coronary angioplasty implant and graft; Z98.42 Cataract extraction status, left eye; Z98.41 Cataract extraction status, right eye; Z88.6 Allergy status to analgesic agent; Z88.8 Allergy status to other drugs, medicaments and biological substances; Z87.891 Personal history of nicotine dependence; Z88.1 Allergy status to other antibiotic agents
CPT/HCPCS: 10112

== ENCOUNTER → 2017-12-07 | Outpatient (CLI) | payer OTHER, MEDICARE | LOC: RAD 13:08 | DX: M16.12 Unilateral primary osteoarthritis, left hip (principal); J94.8 Other specified pleural conditions; J44.9 Chronic obstructive pulmonary disease, unspecified; I48.91 Unspecified atrial fibrillation; I11.0 Hypertensive heart disease with heart failure; I50.9 Heart failure, unspecified; E11.9 Type 2 diabetes mellitus without complications; I42.9 Cardiomyopathy, unspecified; K50.90 Crohn's disease, unspecified, without complications; W19.XXXA Unspecified fall, initial encounter ==

== ENCOUNTER → 2018-05-24 | Outpatient (CLI) | payer OTHER, MEDICARE | LOC: RAD 14:15 | DX: J44.9 Chronic obstructive pulmonary disease, unspecified (principal); I48.91 Unspecified atrial fibrillation; I11.0 Hypertensive heart disease with heart failure; I50.9 Heart failure, unspecified; I25.10 Atherosclerotic heart disease of native coronary artery without angina pectoris; M19.90 Unspecified osteoarthritis, unspecified site ==